=== PATIENT | female | born 1945 | race Caucasian/White ===

== ENCOUNTER 2022-09-28 04:40 | Inpatient (IN) ==
[2022-09-28] MEDS ORDERED: fentaNYL citrate PF 100 MCG/2 ML VIAL IV PRN (04:58)
[2022-09-28] MEDS ORDERED: ONDANSETRON INJ 2 MG/ML 2 ML VIAL IV STA (04:58)
[2022-09-28] MEDS ORDERED: ACETAMINOPHEN 1,000 MG/100 ML VIAL IV STA (04:58)
[2022-09-28] MEDS ORDERED: SODIUM CHLORIDE 0.9% 1000ML 1,000 ML IV SCH (05:00)
--- NOTE | 2022-09-28 05:08 | Emergency Department Note ---
Impression & Plan Abdominal pain, Nausea & vomiting, Small bowel obstruction ED Provider Note ED Provider Note NAME: ARNOLDO ZAMUDIO AGE:77 SEX: Female : 1945 ARRIVES VIA: EMS INFORMANT: Patient ED PROVIDER(s): Breanne Barros DO CHIEF COMPLAINT: Abdominal pain HPI: This is a 77-year-old female brought in by EMS due to concern for worsening abdominal pain, nausea, constipation, and chills. Patient states she felt well yesterday during the day however began to develop some lower abdominal pain in the evening. She states pain worsened overnight, is worse on the left than the right of her lower abdomen and radiates around into her back bilaterally. She states she began feeling chilled and getting nauseated and vomited several times at home. She states she did have a small bowel movement overnight tonight that she describes as a small pellet which was hard. No obvious blood. Patient denies any recent change in medications. She takes low-dose aspirin, no anticoagulation. She denies any recent dietary change or known sick contacts. Patient states she has had prior abdominal surgery when she had ischemia of her intestines. She states this feels similar. Patient is traveling from out of town. PAST MEDICAL HISTORY:See Below PAST SURGICAL HISTORY:See Below FAMILY HISTORY:See Below SOCIAL HISTORY:See Below HOME MEDICATIONS:See Below ALLERGIES:See Below VITALS:See Below PHYSICAL EXAMINATION: GENERAL: alert, unwell appearing, well nourished, mild distress, rigors, vomiting on arrival EYE EXAM: normal conjunctiva, PERRL and EOM's grossly intact OROPHARYNX: no exudate, no erythema, lips, buccal mucosa, and tongue normal and mucous membranes are dry NECK: supple, no nuchal rigidity, no adenopathy, non-tender LUNGS: Clear to auscultation. Normal chest wall mechanics, no w/r/r HEART: no murmurs, S1 normal and S2 normal ABDOMEN: abdomen soft, discomfort left greater than right of the lower abdomen, normo-active bowel sounds, no masses, no rebound or guarding. BACK: Back is symmetrical on inspection and there is no deformity, no midline tenderness, no CVA tenderness. SKIN: no rashes, petechiae, orbruising UPPER EXTREMITIES: upper extremities are grossly normal. FROM, nml pulses b/l. LOWER EXTREMITIES: No pitting edema. FROM, nml pulses b/l. NEURO EXAM: Normal sensorium, cranial nerves II-XII grossly intact, normal speech, no facial droop,nogross weakness of arms, no gross weakness of legs. Gross sensation intact. No ataxia. Vital Signs: reviewed and remarkable Differential Diagnosis: diverticulitis, perf, mesenteric ischemia, volvulus, renal colic, UTI, GI bleed, SBO, colitis as well as others were considered MEDICAL DECISION MAKING: THis is a 77 yo female who presents to the ER with concern for abdominal pain, nausea and vomiting. Patient ill appearing on arrival, however VS stable. Labs drawn and sent, IV established, EKG and CXR performed and interpreted at bedside, and patient placed on telemetry. She was started on IVF and given IV tylenol, IV zofran, IV compazine, and IV fentanyl for her symptoms. She was sent for CT imaging which showed SBO. This was discussed with gen surg PA who evaluated the patient at bedside and then with hospitalist team. Patient and friends she is traveling with were updated on results and need for additional inpatient evaluation at bedside. They verbalized understanding and were in agreement with the plan. UA still pending at time of discussion. Repeat lactic acid reassuring. Consultation(s): 0726: Discussed with Junaid Franco PA-C with general surgery. 0745: Discussed with Dr. Calderon, [facility] hospitalist team. ER Treatment Provided: See below 0720: Patient updated on results. She states no nausea at this time and as long as she is not trying to move she has no further pain. Patient now also states she did finish an antibiotic for UTI approximately 4 to 5 days ago. She states she has been having small hard stools for approximately the last week. She s tates this is not uncommon when she travels. Diagnostics Interpreted By Me: -ECG: Normal sinus at 66, first-degree AV block, left axis, normal intervals, nonspecific ST/T wave changes -Cardiac Monitoring: An order was placed for continuous cardiac monitoring. The monitor shows a rate of 68 with normal sinus rhythm. -Laboratory studies: As stated above and show below. -Imaging studies: X-ray Chest: A single view study of the chest was reviewed and was negative for cardiomegaly, focal infiltrate, effusion, pulmonary edema, or wide mediastinum. Triage Nursing Note Reviewed Prior/Outside Records Reviewed Past Med/Surg History Medical History (Updated 09/29/22 @ 22:06 by Breanne Barros DO) CAD (coronary atherosclerotic disease) Diabetes mellitus H/O: HTN (hypertension) HLD (hyperlipidemia) Ischemia, bowel UTI (urinary tract infection) Surgical History (Updated 09/28/22 @ 08:59 by Clair Medley PA-C) H/O laminectomy History of colon resection History of repair of hiatal hernia Social History Smoking Status: Never smoker Second Hand Exposure: No; Do You Dip or Chew Tobacco: No; Hx Alcohol Use: Yes Alcohol type: beer and wine Hx Substance Use: Yes Last Used Substance: Unknown Last Used Substance Other:: >1 month ago Preferred Language: Bengali Communication Ability: Effective Product Advisor Required: No Beliefs That Will Affect Care: None Current Living Situation: Family Current Living Situation Comment: lives with sister Other Information That Helps Us Care for You: No Feels Safe at Home: Yes Safety Concerns: Feels Safe At This Time Assistive Devices: Cane Allergies Allergies Allergy/AdvReac Type Severity Reaction Status Date / Time Sulfa (Sulfonamide Allergy Hives Verified 09/28/22 07:48 Antibiotics) Home Meds Home Medications Medication Instructions Recorded Confirmed Bifidobacterium infantis 4 mg 4 mg PO HS 09/28/22 09/28/22 capsule (Align) aspirin 81 mg tablet,delayed 81 mg PO HS 09/28/22 09/28/22 release atenolol 50 mg tablet 50 mg PO QAM 09/28/22 09/28/22 calcium 26-vit D3-magnesium 15 1 tab PO DAILY 09/28/22 09/28/22 coenzyme Q10 100 mg capsule (Co 100 mg PO HS 09/28/22 09/28/22 Q-10) docusate sodium 50 mg capsule 50 mg PO DAILY 09/28/22 09/28/22 duloxetine 60 mg capsule,delayed 60 mg PO QAM 09/28/22 09/28/22 release (Cymbalta) empagliflozin 25 mg tablet 25 mg PO QAM 09/28/22 09/28/22 (Jardiance) insulin glargine U-300 conc 300 39 unit subcut 09/28/22 09/28/22 unit/mL (3 mL) subcutaneous pen (Toujeo Max U-300 SoloStar) methylphenidate HCl 20 mg tablet 40 mg PO QAM 09/28/22 09/28/22 rosuvastatin 20 mg tablet 20 mg PO HS 09/28/22 09/28/22 semaglutide 2 mg/dose (8 mg/3 mL) 2 mg subcut DIRECTED 09/28/22 09/28/22 subcutaneous pen injector (Ozempic) Results & Data (ED) Vital Signs Vital Signs - 24 hr 09/28/22 04:48 09/28/22 05:30 09/28/22 06:24 Temperature 36.4 C L Temperature Source Temporal Artery Scan Pulse Rate 53 L 53 L Pulse Rate from SpO2 Sensor Respiratory Rate 20 Blood Pressure 167/70 H Blood Pressure Mean 102 Blood Pressure Position Lying Pulse Oximetry 98 Oxygen Delivery Method Room Air Sepsis Recent Fever Within 48 Hours No Sepsis New/Unexplained Change in Mental Status N/A Sepsis Action Taken by Nursing No Action Required 09/28/22 05:01 09/28/22 05:30 09/28/22 06:44 Temperature Temperature Source Pulse Rate 64 Pulse Rate from SpO2 Sensor Respiratory Rate 17 Blood Pressure 129/111 H 154/62 H Blood Pressure Mean 117 92 Blood Pressure Position Pulse Oximetry Oxygen Delivery Method Sepsis Recent Fever Within 48 Hours Sepsis New/Unexplained Change in Mental Status Sepsis Action Taken by Nursing 09/28/22 06:44 Temperature Temperature Source Pulse Rate 64 Pulse Rate from SpO2 Sensor 67 Respiratory Rate 22 Blood Pressure Blood Pressure Mean Blood Pressure Position Pulse Oximetry 93 Oxygen Delivery Method Room Air Sepsis Recent Fever Within 48 Hours Sepsis New/Unexplained Change in Mental Status Sepsis Action Taken by Nursing Laboratory Data 09/28/22 04:44 09/28/22 04:44 Lab Results 09/28/22 09/28/22 09/28/22 Range/Units 04:44 04:44 04:44 WBC 7.83 (4.8-10.8) K/ul RBC 5.26 (4.20-5.40) M/uL Hgb 16.4 H (12.0-16.0) g/dl Hct 47.6 H (37.0-47.0) % MCV 90.5 (80.0-100.0) fL MCH 31.2 (25.0-34.0) pg MCHC 34.5 (32.0-36.0) g/dL RDW Std Deviation 41.5 (36.4-46.3) fL RDW Coeff of Herbie 12.5 (11.5-14.5) % Plt Count 206 (130-400) K/uL MPV 10.1 (9.4-12.4) fL Immature Gran % (Auto) 0.5 % Neut % (Auto) 55.5 % Lymph % (Auto) 34.4 % Jessamine % (Auto) 6.8 % Eos % (Auto) 2.2 % Baso % (Auto) 0.6 % Neut # (Auto) 4.35 (1.40-6.50) K/uL Lymph # (Auto) 2.69 (1.2-3.4) K/uL Jessamine # (Auto) 0.53 (0.11-0.59) K/uL Eos # (Auto) 0.17 (0-0.50) K/uL Baso # (Auto) 0.05 (0-0.2) K/uL Immature Gran # (Auto) 0.04 (0.01-0.20) K/uL PT 10.6 (9.0-12.0) Seconds INR 1.0 (0.9-1.1) Sodium (136-145) mmol/L Potassium (3.5-5.1) mmol/L Chloride (98-107) mmol/L Carbon Dioxide (21-32) mmol/L Anion Gap (3-11) BUN (6-23) mg/dl Creatinine (0.6-1.2) mg/dl Est Cr Clr Drug Dosing Est GFR ( Amer) ml/min Est GFR (Non-Af Amer) ml/min BUN/Creatinine Ratio (10-20) Glucose (70-99(Fasting)) mg/dl Lactate (0.4-2.0) mmol/L Calcium (8.6-10.3) mg/dl Magnesium (1.7-2.4) mg/dl Total Bilirubin (0.2-1.0) mg/dl AST (13-39) U/L ALT (7-52) U/L Alkaline Phosphatase (34-104) U/L Troponin I High Sens (0-14) pg/ml Total Protein (6.0-8.3) gm/dl Albumin (3.4-5.0) gm/dl Globulin (2.5-4.0) gm/dl Albumin/Globulin Ratio (0.9-2) Lipase (11-82) U/L Procalcitonin < 0.05 (0-0.5) ng/ml 09/28/22 09/28/22 09/28/22 Range/Units 04:44 05:29 07:11 WBC (4.8-10.8) K/ul RBC (4.20-5.40) M/uL Hgb (12.0-16.0) g/dl Hct (37.0-47.0) % MCV (80.0-100.0) fL MCH (25.0-34.0) pg MCHC (32.0-36.0) g/dL RDW Std Deviation (36.4-46.3) fL RDW Coeff of Herbie (11.5-14.5) % Plt Count (130-400) K/uL MPV (9.4-12.4) fL Immature Gran % (Auto) % Neut % (Auto) % Lymph % (Auto) % Jessamine % (Auto) % Eos % (Auto) % Baso % (Auto) % Neut # (Auto) (1.40-6.50) K/uL Lymph # (Auto) (1.2-3.4) K/uL Jessamine # (Auto) (0.11-0.59) K/uL Eos # (Auto) (0-0.50) K/uL Baso # (Auto) (0-0.2) K/uL Immature Gran # (Auto) (0.01-0.20) K/uL PT (9.0-12.0) Seconds INR (0.9-1.1) Sodium 139 (136-145) mmol/L Potassium 3.4 L (3.5-5.1) mmol/L Chloride 103 (98-107) mmol/L Carbon Dioxide 25 (21-32) mmol/L Anion Gap 11 (3-11) BUN 20 (6-23) mg/dl Creatinine 1.00 (0.6-1.2) mg/dl Est Cr Clr Drug Dosing Not Reportable Est GFR ( Amer) 62.9 ml/min Est GFR (Non-Af Amer) 54.3 ml/min BUN/Creatinine Ratio 20.0 (10-20) Glucose 182 H (70-99(Fasting)) mg/dl Lactate 2.5 H* 1.4 (0.4-2.0) mmol/L Calcium 10.6 H (8.6-10.3) mg/dl Magnesium 2.1 (1.7-2.4) mg/dl Total Bilirubin 0.5 (0.2-1.0) mg/dl AST 20 (13-39) U/L ALT 18 (7-52) U/L Alkaline Phosphatase 79 (34-104) U/L Troponin I High Sens 2.7 (0-14) pg/ml Total Protein 7.3 (6.0-8.3) gm/dl Albumin 4.2 (3.4-5.0) gm/dl Globulin 3.1 (2.5-4.0) gm/dl Albumin/Globulin Ratio 1.4 (0.9-2) Lipase 24 (11-82) U/L Procalcitonin (0-0.5) ng/ml Administered Medications Dextrose (Dextrose 50% 50 Ml Syringe) 25 - 50 ml IV UD PRN; Protocol PRN Reason: Hypoglycemia Protocol Stop: 10/28/22 10:52 Last Admin: 09/29/22 18:18 Dose: 50 ml Documented By: EVELIN Enoxaparin Sodium (Enoxaparin Inj 40 Mg/0.4 Ml Syr) 40 mg SQ DAILY [facility] Stop: 10/28/22 11:14 Last Admin: 09/29/22 10:04 Dose: 40 mg Documented By: Admin: 09/28/22 12:25 Dose: 40 mg Documented By: WENDY Acetaminophen ([facility]) 1,000 mg in 100 mls @ 400 mls/hr IV Q8H PRN PRN Reason: Mild/moderate pain or fever Stop: 10/01/22 10:52 Last Infusion: 09/29/22 19:03 Dose: 0 mls/hr Documented By: TKLake Admin: 09/29/22 18:46 Dose: 400 mls/hr Documented By: Infusion: 09/29/22 00:05 Dose: 0 mls/hr Documented By: Admin: 09/28/22 23:34 Dose: 400 mls/hr Documented By: Infusion: 09/28/22 14:14 Dose: 0 mls/hr Documented By: Admin: 09/28/22 13:40 Dose: 400 mls/hr Documented By: WENDY Famotidine 20 mg/ Syringe 5 mls @ 2.5 mls/min IV QAM LEANNE Stop: 10/29/22 08:59 Last Admin: 09/29/22 08:40 Dose: 2.5 mls/min Documented By: EVELIN Ceftriaxone Sodium 1,000 mg/ (Dextrose) 50 mls @ 100 mls/hr IV Q24H LEANNE; Protocol Stop: 10/04/22 08:59 Last Infusion: 09/29/22 10:17 Dose: 0 mls/hr Documented By: Admin: 09/29/22 09:19 Dose: 100 mls/hr Documented By: EVELIN Dextrose/Sodium Chloride (D5w And Nss) 1,000 mls @ 125 mls/hr IV .Q8H LEANNE Stop: 10/29/22 18:29 Last Admin: 09/29/22 18:23 Dose: 125 mls/hr Documented By: EVELIN Insulin Aspart (Insulin Aspart Per Unit Charge) 0 units SC Q6 LEANNE Stop: 10/28/22 11:29 Last Admin: 09/29/22 18:13 Dose: Not Given Documented By: Admin: 09/29/22 12:08 Dose: Not Given Documented By: Admin: 09/29/22 07:13 Dose: Not Given Documented By: Admin: 09/29/22 03:22 Dose: Not Given Documented By: Admin: 09/28/22 18:05 Dose: Not Given Documented By: WENDY Co-signed By: MARIE Admin: 09/28/22 12:18 Dose: Not Given Documented By: WENDY Co-signed By: FADI Insulin Glargine (Lantus Per Unit Charge) 0 units SC HS [facility]; Protocol Stop: 10/28/22 20:59 Last Admin: 09/29/22 20:35 Dose: Not Given Documented By: Admin: 09/28/22 21:11 Dose: Not Given Documented By: ALLYSSA Morphine Sulfate (Morphine Sulfate 2 Mg/Ml Carp) 1 mg IV Q2H PRN PRN Reason: severe pain Stop: 10/12/22 10:52 Last Admin: 09/29/22 06:56 Dose: 1 mg Documented By: Admin: 09/28/22 14:47 Dose: 1 mg Documented By: MK Discontinued Medications Sodium Chloride (Nss 1000ml) 1,000 mls @ 125 mls/hr IV .Q8H LEANNE Stop: 10/28/22 04:59 Last Infusion: 09/28/22 11:23 Dose: 0 mls/hr Documented By: Admin: 09/28/22 05:03 Dose: 125 mls/hr Documented By: Acetaminophen (Ofirmev) 1,000 mg in 100 mls @ 400 mls/hr IV NOW STA Stop: 09/28/22 05:12 Last Infusion: 09/28/22 05:18 Dose: 0 mls/hr Documented By: Admin: 09/28/22 05:03 Dose: 400 mls/hr Documented By: Prochlorperazine (Compazine) 1 mls @ 1 mls/min IV ONE ONE Stop: 09/28/22 05:18 Last Admin: 09/28/22 05:20 Dose: 1 mls/min Documented By: Potassium Chloride/Dextrose/Sod Cl (D5nss + 20meq Kcl) 20 meq in 1,000 mls @ 125 mls/hr IV .Q8H LEANNE; Protocol Stop: 10/28/22 11:14 Last Infusion: 09/29/22 08:28 Dose: 0 mls/hr Documented By: Infusion: 09/29/22 08:27 Dose: 0 mls/hr Documented By: Admin: 09/29/22 03:46 Dose: 125 mls/hr Documented By: Infusion: 09/29/22 03:29 Dose: 125 mls/hr Documented By: Admin: 09/28/22 19:29 Dose: 125 mls/hr Documented By: Infusion: 09/28/22 19:29 Dose: 125 mls/hr Documented By: Admin: 09/28/22 11:32 Dose: 125 mls/hr Documented By: AV Famotidine 20 mg/ Syringe 5 mls @ 2.5 mls/min IV NOW ONE Stop: 09/28/22 11:16 Last Admin: 09/28/22 11:32 Dose: 2.5 mls/min Documented By: AV Sodium Chloride (Nss 1000ml) 1,000 mls @ 125 mls/hr IV .Q8H LEANNE Stop: 10/29/22 08:29 Last Infusion: 09/29/22 18:21 Dose: 0 mls/hr Documented By: Admin: 09/29/22 16:46 Dose: 125 mls/hr Documented By: Infusion: 09/29/22 16:34 Dose: 125 mls/hr Documented By: Admin: 09/29/22 08:34 Dose: 125 mls/hr Documented By: CS Pantoprazole Sodium 40 mg/ (Syringe) 10 mls @ 5 mls/min IV 1700 ONE Stop: 09/29/22 17:01 Last Admin: 09/29/22 17:59 Dose: 5 mls/min Documented By: EVELIN Ioversol (Optiray 320 100ml) 93 ml IV ONCE ONE Stop: 09/28/22 05:57 Last Admin: 09/28/22 05:56 Dose: 93 ml Documented By: RASHAUN Ondansetron HCl (Ondansetron Inj 2 Mg/Ml 2 Ml Vial) 4 mg IV NOW STA Stop: 09/28/22 04:59 Last Admin: 09/28/22 05:03 Dose: 4 mg Documented By: Imaging Data Radiologist's Impression: Abdomen/Pelvis CT 09/28/22 04:58 CT SCAN OF THE ABDOMEN AND PELVIS WITH IV CONTRAST CLINICAL HISTORY: Generalized abdominal pain. COMPARISON STUDY: No priors. TECHNIQUE: Following the IV administration of 93 cc of Optiray 320, CT scan of the abdomen and pelvis is performed from the lung bases to the proximal femora. Images are reviewed in the axial, sagittal, and coronal planes. IV contrast was administered without complication. A dose lowering technique was utilized adheri ng to the principles of ALARA. The Examination is significantly degraded by streak artifact from extensive metallic spinal hardware and bilateral hip arthroplasties. CT DOSE: 1167.34 mGy.cm FINDINGS: Lung bases: The heart is normal in size and without pericardial effusion. The coronary arteries are densely calcified. The lung bases are clear noting mild bibasilar scarring/atelectasis. Liver: The contrast-enhanced liver is normal in size, contour, and attenuation. There is no intrahepatic biliary ductal dilatation. The hepatic veins and portal veins are patent. Gallbladder: Unremarkable. Spleen: Normal in size and attenuation. Pancreas: A 17 mm ovoid cystic lesion in the pancreatic neck seen on image #91 is typical for sidebranch IPMN. The pancreas is otherwise normal as imaged. Adrenal glands: Unremarkable. Kidneys: The contrast enhanced kidneys demonstrate mild cortical atrophy and are without hydronephrosis. The kidneys enhance symmetrically. Abdominal vasculature: The abdominal aorta is normal in course and caliber note a moderate to advanced atherosclerotic calcification. Stomach and bowel: There is a [id number] hiatal hernia. There is evidence of previous fundoplication. There is advanced colonic diverticulosis without CT evidence of acute diverticulitis. Postsurgical change is seen involving the right colon with ileocolic anastomosis. The mid small bowel loops are distended and fluid-filled measuring up to 2.5 cm in diameter. A complex transition point is seen in the right lower quadrant on image #187. There is infiltration and interloop fluid around the small bowel loops in the right lower quadrant. The small bowel distal to this is completely decompressed and the appearance is consistent with a small bowel obstruction. There is no pneumatosis intestinalis or portal venous gas. The appendix is surgically absent. Peritoneum: No intraperitoneal free air is identified. There is trace interloop fluid as well as trace free fluid in the right paracolic gutter. Lymphadenopathy: None. Pelvic viscera: Evaluation of the pelvis is degraded by streak artifact from bilateral hip arthroplasties. The bladder is normal as visualized. The uterus is surgically absent. No adnexal lesion is seen. There are small bilateral fat- containing groin hernias. Skeletal structures: The skeletal structures are osteopenic. There is lumbosacral spondylosis with postsurgical change from laminectomy and posterior fusion seen extending from L1-S1. Interpedicular screws are present at all levels. Lucency around the interpedicular screws at S1 suggests loosening. No lytic or blastic lesions are seen. Bilateral hip arthroplasties are in place. Soft tissues: A fluid collection seen in the posterior midline subcutaneous soft tissues overlying the laminectomy site measures approximately 9 x 3.5 x 3 cm. IMPRESSION: 1. There is postsurgical change from right colonic resection with ileocolic an astomosis. 2. There is a small bowel obstruction with a complex transition point in the right lower quadrant. Interloop fluid and infiltration is seen around the small bowel loops in the right lower quadrant at the transition point. This is likely on the basis of adhesions. Given the somewhat complex appearance a closed loop type obstruction is not entirely excluded. Surgical assessment is advised. 3. No focally thick-walled bowel loops are identified. There is no pneumatosis intestinalis or portal venous gas, and no intraperitoneal free air is seen. 4. A 17 mm ovoid cystic lesion in the pancreatic neck is typical for a sidebranch IPMN. Nonemergent GI follow-up is recommended. 5. Extensive postlaminectomy change is seen throughout the lumbar spine as above. A large subcutaneous fluid collection in the posterior midline at the laminectomy levels likely represents a seroma. The sterility of this fluid cannot be assessed imaging. 6. Lucency around the interpedicular screws at S1 suggests loosening. 7. Advanced colonic diverticulosis without CT evidence of acute diverticulitis. 8. Advanced coronary artery atherosclerosis. 9. Additional findings as above. ACT 112: Negative or not required by law. Electronically signed by: Ramesh Corrales M.D. 09/28/2022 7:11 AM Discharge Plan Visit Data Chief Complaint: Abdominal Pain Stated Complaint: Abdominal Pain, Constipation, Vomiting ED Provider: Breanne Barros Discharge Problem: Abdominal pain, Nausea & vomiting, Small bowel obstruction Patient Disposition: Admitted As Inpatient Discharge Instructions Interventions: ED Discharge Assessment Last Done: 09/28/22 10:00
[2022-09-28 05:10] LABS: Basophils # (auto) 0.05 K/uL (0-0.2); Basophils % (auto) 0.6 %; Eosinophils # (auto) 0.17 K/uL (0-0.50); Eosinophils % (auto) 2.2 %; Hematocrit (blood only) 47.6 % (37.0-47.0); Hemoglobin 16.4 g/dl (12.0-16.0); Immature Granulocytes # (auto) 0.04 K/uL (0.01-0.20); Immature Granulocytes % (auto) 0.5 %; Lymphocytes # (auto) 2.69 K/uL (1.2-3.4); Lymphocytes % (auto) 34.4 %; Mean Corpuscular Hemoglobin 31.2 pg (25.0-34.0); Mean Corpuscular Hgb Conc 34.5 g/dL (32.0-36.0); Mean Corpuscular Volume 90.5 fL (80.0-100.0); Mean Platelet Volume 10.1 fL (9.4-12.4); Monocytes # (auto) 0.53 K/uL (0.11-0.59); Monocytes % (auto) 6.8 %; Neutrophils # (auto) 4.35 K/uL (1.40-6.50); Neutrophils % (auto) 55.5 %; Platelet Count 206 K/uL (130-400); RDW Coefficient of Variation 12.5 % (11.5-14.5); RDW Standard Deviation 41.5 fL (36.4-46.3); Red Blood Count 5.26 M/uL (4.20-5.40); White Blood Count 7.83 K/ul (4.8-10.8)
[2022-09-28] MEDS ORDERED: PROCHLORPERAZINE 1 ML IV ONE (05:17)
[2022-09-28 05:19] LABS: Alanine Aminotransferase 18 U/L (7-52); Albumin Globulin Ratio 1.4 (0.9-2); Albumin Level 4.2 gm/dl (3.4-5.0); Alkaline Phosphatase 79 U/L (34-104); Anion Gap 11 (3-11); Aspartate Aminotransferase 20 U/L (13-39); Bilirubin,Total 0.5 mg/dl (0.2-1.0); Blood Urea Nitrogen 20 mg/dl (6-23); Calcium 10.6 mg/dl (8.6-10.3); Carbon Dioxide 25 mmol/L (21-32); Chloride 103 mmol/L (98-107); Est GFR (African American) 62.9 ml/min; Est GFR (Non-African American) 54.3 ml/min; Globulin 3.1 gm/dl (2.5-4.0); Glucose 182 mg/dl (70-99(Fasting)); Lipase 24 U/L (11-82); Magnesium 2.1 mg/dl (1.7-2.4); Potassium 3.4 mmol/L (3.5-5.1); Sodium 139 mmol/L (136-145); Total Protein 7.3 gm/dl (6.0-8.3)
[2022-09-28 05:26] LABS: Troponin I High Sensitivity 2.7 pg/ml (0-14)
[2022-09-28 05:37] LABS: Prothrombin Time 10.6 Seconds (9.0-12.0)
[2022-09-28] MEDS ORDERED: OPTIRAY 320 100ml IV ONE (05:56)
--- NOTE | 2022-09-28 07:13 | CT Scan Report ---
CT SCAN OF THE ABDOMEN AND PELVIS WITH IV CONTRAST CLINICAL HISTORY: Generalized abdominal pain. COMPARISON STUDY: No priors. TECHNIQUE: Following the IV administration of 93 cc of Optiray 320, CT scan of the abdomen and pelvi s is performed from the lung bases to the proximal femora. Images are reviewed in the axial, sagittal , and coronal planes. IV contrast was administered without complication. A dose lowering technique wa s utilized adhering to the principles of ALARA. The Examination is significantly degraded by streak a rtifact from extensive metallic spinal hardware and bilateral hip arthroplasties. CT DOSE: 1167.34 mGy.cm FINDINGS: Lung bases: The heart is normal in size and without pericardial effusion. The coronary arteries are d ensely calcified. The lung bases are clear noting mild bibasilar scarring/atelectasis. Liver: The contrast-enhanced liver is normal in size, contour, and attenuation. There is no intrahepa tic biliary ductal dilatation. The hepatic veins and portal veins are patent. Gallbladder: Unremarkable. Spleen: Normal in size and attenuation. Pancreas: A 17 mm ovoid cystic lesion in the pancreatic neck seen on image #91 is typical for sidebra nch IPMN. The pancreas is otherwise normal as imaged. Adrenal glands: Unremarkable. Kidneys: The contrast enhanced kidneys demonstrate mild cortical atrophy and are without hydronephros is. The kidneys enhance symmetrically. Abdominal vasculature: The abdominal aorta is normal in course and caliber note a moderate to advance d atherosclerotic calcification. Stomach and bowel: There is a [id number] hiatal hernia. There is evidence of previous fundopli cation. There is advanced colonic diverticulosis without CT evidence of acute diverticulitis. Postsur gical change is seen involving the right colon with ileocolic anastomosis. The mid small bowel loops are distended and fluid-filled measuring up to 2.5 cm in diameter. A complex transition point is seen in the right lower quadrant on image #187. There is infiltration and interloop fluid around the smal l bowel loops in the right lower quadrant. The small bowel distal to this is completely decompressed and the appearance is consistent with a small bowel obstruction. There is no pneumatosis intestinalis or portal venous gas. The appendix is surgically absent. Peritoneum: No intraperitoneal free air is identified. There is trace interloop fluid as well as trac e free fluid in the right paracolic gutter. Lymphadenopathy: None. Pelvic viscera: Evaluation of the pelvis is degraded by streak artifact from bilateral hip arthroplas ties. The bladder is normal as visualized. The uterus is surgically absent. No adnexal lesion is seen . There are small bilateral fat-containing groin hernias. Skeletal structures: The skeletal structures are osteopenic. There is lumbosacral spondylosis with po stsurgical change from laminectomy and posterior fusion seen extending from L1-S1. Interpedicular scr ews are present at all levels. Lucency around the interpedicular screws at S1 suggests loosening. No lytic or blastic lesions are seen. Bilateral hip arthroplasties are in place. Soft tissues: A fluid collection seen in the posterior midline subcutaneous soft tissues overlying th e laminectomy site measures approximately 9 x 3.5 x 3 cm. IMPRESSION: 1. There is postsurgical change from right colonic resection with ileocolic anastomosis. 2. There is a small bowel obstruction with a complex transition point in the right lower quadrant. In terloop fluid and infiltration is seen around the small bowel loops in the right lower quadrant at th e transition point. This is likely on the basis of adhesions. Given the somewhat complex appearance a closed loop type obstruction is not entirely excluded. Surgical assessment is advised. 3. No focally thick-walled bowel loops are identified. There is no pneumatosis intestinalis or portal venous gas, and no intraperitoneal free air is seen. 4. A 17 mm ovoid cystic lesion in the pancreatic neck is typical for a sidebranch IPMN. Nonemergent G I follow-up is recommended. 5. Extensive postlaminectomy change is seen throughout the lumbar spine as above. A large subcutaneou s fluid collection in the posterior midline at the laminectomy levels likely represents a seroma. The sterility of this fluid cannot be assessed imaging. 6. Lucency around the interpedicular screws at S1 suggests loosening. 7. Advanced colonic diverticulosis without CT evidence of acute diverticulitis. 8. Advanced coronary artery atherosclerosis. 9. Additional findings as above. ACT 112: Negative or not required by law. Electronically signed by: Ramesh Corrales M.D. 09/28/2022 7:11 AM
[2022-09-28] MEDS ORDERED: PROCHLORPERAZINE 1 ML IV PRN (07:23)
--- NOTE | 2022-09-28 07:48 | Surgery Consultation ---
Date of Consultation September 28, 2022 Assessment & Plan (1) Small bowel obstruction: I discussed with the treating emergency room physician and the patient is being admitted on the hospitalist service. We recommend proceeding as follows: Provide analgesics provide antiemetics At the present time the patient is not having any emesis and her abdomen is soft and nonrigid. Due to the findings on her abdominal exam I feel we can hold on placing NG tube at this time. I did discuss with the patient that if her clinical exam worsens or if she has any recurrent emesis and NG tube may need to be placed and she expressed her understanding. The patient should be kept n.p.o. IV fluids should be in place for hydration measures Follow serial labsthe patient did have an elevated lactic acid level. She did receive intravenous fluids in the emergency department and a repeat lactic acid level was noted to be nonelevated. Additional recommendations were forthcoming based on pending labs and her clinical course as it unfolds Supervising Physician Co-Signing Physician Notes Patient seen and examined, labs and imaging reviewed, agree with above. 77-year-old female with history of right hemicolectomy for ischemic bowel at [facility] presents with abdominal pain. She feels much better than on arrival. On exam she is afebrile with stable vitals, abdomen soft, nontender, minimally distended. CT personally reviewed and interpreted and agree with the assessment of a small bowel obstruction with some interloop edema. No pneumatosis. I do not feel this represents a closed-loop obstruction. Likely adhesions from prior hemicolectomy, will hold off on NG tube, will keep her n.p.o. No surgical intervention indicated at this time. Surgery will continue to follow History of Present Illness Reason for Consultation: Small bowel obstruction History of Present Illness This is a 77-year-old female who presented to [facility] emergency department secondary to abdominal pain. This patient resides in [place] where she receives her medical care. She is in [place] visiting friends. She was fine in her usual state of health until yesterday after her evening meal when she had the urge to have a bowel movement but notes that she could not. She then developed some generalized abdominal pain with some associated nausea and vomiting. She has not had any fevers, shakes, or chills. The patient does report that she has had a history of a partial colon resection secondary to bowel ischemia in 2018 and she noted that her pain was similar to what she noted at that time. Since her pain began the patient says that she has only been able to have a very small bowel movement. Since arrival to the emergency department she has not moved her bowels and has not been passing any flatus. She did have 1 episode of emesis shortly after arrival to the emergency department but has not had any since that time. Since arrival to the emergency department the patient has had labs and imaging which independent reviewed. Chest x-ray did not show any evidence of pneumonia. Patient did have a CT scan of the abdomen and pelvis that showed patient had postsurgical changes from a previous right colon resection. The patient was also noted to have a small bowel obstruction with a transition point in the right lower quadrant. Interpreting radiologist felt that this was likely in the basis of adhesions but a closed-loop obstruction could not be excluded. There is no pneumatosis intestinalis or portal venous gas. There is no intraperitoneal free air. Labs include a CBC her white blood cell count was normal. Her hemoglobin and hematocrit were 16.4 and 47.6. Platelet count was normal. Coagulation studies were normal. Her sodium was 139 with a potassium of 3.4. BUN and creatinine were both within the normal range. Patient did have a lactic acid level of 2.5 upon arrival. Cardiac enzymes were checked and were nonelevated. A procalcitonin level was nonelevated. An EKG showed normal sinus rhythm. There did not appear to be any changes indicative of acute ischemia. At the time of my interview the patient was resting comfortably in bed and she was no distress. Patient did bring her a list of previous surgeries and medical conditions. Her past surgical history includes the following: Hysterectomy, numerous orthopedic surgeries(right foot reconstruction, left shoulder arthroscopy, lumbar spine surgery, right thumb surgery, left thumb surgery, left knee replacement, right knee arthroscopy, right knee replacement,, left hip replacement, right hip replacement, right shoulder replacement, left shoulder replacement,) Port-A-Cath insertion, emergency partial colon resection with appendectomy secondary to bowel ischemia, hiatal hernia repair, and eyelid surgery Past medical history includes coronary artery (the patient reports that she did undergo cardiac catheterization in November 2013 where she had 2 stents placedshe says she only takes an aspirin for this), diabetes, hypertension, hypercholesterolemia Allergies Allergy/AdvReac Type Severity Reaction Status Date / Time Sulfa (Sulfonamide Allergy Hives Verified 09/28/22 07:48 Antibiotics) Home Medications Medication Instructions Recorded Confirmed Type Bifidobacterium infantis 4 mg 4 mg PO HS 09/28/22 09/28/22 History capsule (Align) aspirin 81 mg tablet,delayed 81 mg PO HS 09/28/22 09/28/22 History release atenolol 50 mg tablet 50 mg PO QAM 09/28/22 09/28/22 History calcium 26-vit D3-magnesium 15 1 tab PO DAILY 09/28/22 09/28/22 History coenzyme Q10 100 mg capsule (Co 100 mg PO HS 09/28/22 09/28/22 History Q-10) docusate sodium 50 mg capsule 50 mg PO DAILY 09/28/22 09/28/22 History duloxetine 60 mg capsule,delayed 60 mg PO QAM 09/28/22 09/28/22 History release (Cymbalta) empagliflozin 25 mg tablet 25 mg PO QAM 09/28/22 09/28/22 History (Jardiance) insulin glargine U-300 conc 300 39 unit subcut HS 09/28/22 09/28/22 History unit/mL (3 mL) subcutaneous pen (Toujeo Max U-300 SoloStar) methylphenidate HCl 20 mg tablet 40 mg PO QAM 09/28/22 09/28/22 History rosuvastatin 20 mg tablet 20 mg PO HS 09/28/22 09/28/22 History semaglutide 2 mg/dose (8 mg/3 mL) 2 mg subcut DIRECTED 09/28/22 09/28/22 History subcutaneous pen injector (Ozempic) Patient History Medical History (Updated 09/28/22 @ 08:59 by Clair Medley PA-C) CAD (coronary atherosclerotic disease) Diabetes mellitus H/O: HTN (hypertension) HLD (hyperlipidemia) Ischemia, bowel UTI (urinary tract infection) Surgical History (Updated 09/28/22 @ 08:59 by Clair Medley PA-C) H/O laminectomy History of colon resection History of repair of hiatal hernia Social History Smoking Status: Never smoker Preferred Language: Qatari Feels Safe at Home: Yes Review of Systems Constitutional: no fever and no chills Ear, Nose, Mouth, Throat: no hearing loss Respiratory: no dyspnea Cardiovascular: no chest pain Gastrointestinal: as per Subjective / HPI Genitourinary: no dysuria Musculoskeletal: no back pain Integumentary: no rash Neurologic: no localized weakness Physical Exam Constitutional: WD/WN, vitals as above Eyes: no conjunctival abnormality ENMT: Ears: no hearing impairment Neck: trachea midline Respiratory: normal respiratory effort; no respiratory distress and no labored breathing Cardiovascular: Rate/Rhythm: regular rate and regular rhythm Gastrointestinal (Abdomen): At the time of my exam patient had hypoactive bowel sounds. Her abdomen is soft and nondistended. It is nonrigid there is no rebound tenderness or guarding but patient did have some generalized pain which appear to be greatest just to the right of the umbilicus. Musculoskeletal: No calf tenderness Skin: no rashes Neurologic: moves all extremities Results & Data Vital Signs (Past 12 Hours) Vital Signs Temp Pulse Resp BP Pulse Ox O2 Del Method 09/28/22 06:44 64 22 93 Room Air 09/28/22 06:44 154/62 H 09/28/22 05:30 64 17 09/28/22 05:01 129/111 H 09/28/22 06:24 36.4 C L 09/28/22 05:30 53 L 20 167/70 H 98 Room Air 09/28/22 04:48 53 L PG Care Time/CCT Total # of Minutes Spent Total Time Spent with Patient: Total time spent is greater than 50% in coordination of care (as documented) at patient's floor/unit and/or counseling patient: Coding Level of Care Code 21254 INT INP/OBS CARE 3/75MIN Diagnoses Small bowel obstruction K56.609
--- NOTE | 2022-09-28 07:52 | XRay Report ---
SINGLE VIEW CHEST CLINICAL HISTORY: Nausea and vomiting. Generalized abdominal pain. FINDINGS: An AP, portable, upright chest radiograph is obtained. No prior studies are available for c omparison at the time of dictation. The cardiomediastinal silhouette is top normal for projection not ing atherosclerotic calcification of the thoracic aorta. The lungs and pleural spaces are clear. No p neumothorax is seen. The skeletal structures are osteopenic. The bony thorax is grossly intact. Bilat eral shoulder arthroplasties are in place. Fusion hardware is seen in the lumbar spine. IMPRESSION: No active disease in the chest. ACT 112: Negative or not required by law. Electronically signed by: Ramesh Corrales M.D. 09/28/2022 7:50 AM
--- NOTE | 2022-09-28 08:23 | History & Physical Report ---
Date of Service September 28, 2022 Assessment & Plan (1) Small bowel obstruction: Plan: admitted w/ n/v/abdominal pain since last evening, inability to move her bowels Lactic acid elevated, normalized on repeat. No fevers but did report possible chills. WBC wnl. Hgb elevated 16.4. K 3.4, Ca 10.6. BUN/Cr 20/1.0. LFTs wnl. Trop 2.7 (no CP/SOB reported) CTAP w/ small bowel obstruction with a complex transition point in the right lower quadrant. Interloop fluid and infiltration is seen around the small bowel loops in the right lower quadrant at the transition point. This is likely on the basis of adhesions. Given the somewhat complex appearance a closed loop type obstruction is not entirely excluded. Surgical assessment is advised. Maintain NPO General surgery consulted -- appreciate assistance No NGT for now IVF support, IVF + 20KCL, added D5 given NPO Pain control -- tylenol/morphine available prn Antiemetics -- zofran prn, can add phenergan if needed (compazine making very sleepy w/ fentanyl in ER) DVT Proph: SCDs, Lovenox SQ while inpatient given hx jugular VT Check UA/cx given recent UTI/abx use Blood cultures pending from ER, defer abx at this time Monitor labs/KUB in AM (2) CAD (coronary atherosclerotic disease): Plan: hx cath s/p stent x 2 in 2013. No SOB/CP reported Holding her aspirin/atenolol at present (3) H/O: HTN (hypertension): Plan: holding home meds, monitor -- BP currently stable can add hydralazine IV if needed (4) HLD (hyperlipidemia): Plan: holding home meds while npo (5) Nausea & vomiting: Plan: antiemetics as above, no NGT at present but if recurrent n/v may need to consider (6) Abdominal pain: Plan: suspected 2nd to #1, UA/cx ordered given recent UTI/abx per patient Also w/ back surgery last year, does have seroma on imaging but not reporting significant back pain but will need to continue to monitor. PT/OT consults pending as well as blood cultures (7) UTI (urinary tract infection): Plan: of note, patient reporting recent tx for UTI, unknown abx, completed about 4 days ago. denied urinary symptoms however some lower left abd pain/flank discomfort and could be related Of note, need GI f/u for possible IMPN branch on CTAP on admission Plan DVT proph: Lovenox SQ while inpatient History of Present Illness Chief Complaint: n/v/abdominal pain, SBO Primary Care Provider: Alice Araujo 77yo female resident from [place] visiting friends in [place] with PMHx significant for CAD (s/p stent x 2 2013), HTN, HLD, DM with prior surgical history including hysterectomy and partial colon resection with appendectomy secondary to bowel ischemia, hiatal hernia repair presented with abdominal pain starting yesterday evening after evening meal with urge to have B< but was unable. Associated n/v. Hx partial colon resection 2nd to bowel ischemia in 2018, reports feeling similar. 1 episode of emesis shortly after arrival to ER but not since that time. No SBO since her resection in 2018 and subsequent hiatal hernia repair in 2019. No longer on PPI therapy as she reports symptoms had improved since surgery. Currently pain controlled but reports feeling drugged and quiet sleepy. NO chest pain or shortness of breath. No further emesis since given something stronger in the ER but reports she had vomited on in the EMS as well. Abdominal pain to her LEFT lower side with radiation around to her back. Denies urinary symptoms at present but does report she feels like she has to get up to pee. Reports she completed a course of antibiotics for a recent UTI which she is "plagued with". Spinal surgery last year. Could be from this. Hx DM, medications reviewed. She states she has been on these medications for a while, including the Ozempic and reports that she doesn't want to loose any more weight and wants off of this. Discussed last A1c, she believes hers was 6.5. Discussed conservative treatment, holding off NGT for now. Does have prior hx blood clot to jugular from shahid catheter. Will be placed on Lovenox SQ for DVT prophylaxis while inpatient. Full code in event of need for CPR/intubation if meaning short term. Allergies Allergy/AdvReac Type Severity Reaction Status Date / Time Sulfa (Sulfonamide Allergy Hives Verified 09/28/22 07:48 Antibiotics) Home Medications Medication Instructions Recorded Confirmed Type Bifidobacterium infantis 4 mg 4 mg PO HS 09/28/22 09/28/22 History capsule (Align) aspirin 81 mg tablet,delayed 81 mg PO HS 09/28/22 09/28/22 History release atenolol 50 mg tablet 50 mg PO QAM 09/28/22 09/28/22 History calcium 26-vit D3-magnesium 15 1 tab PO DAILY 09/28/22 09/28/22 History coenzyme Q10 100 mg capsule (Co 100 mg PO HS 09/28/22 09/28/22 History Q-10) docusate sodium 50 mg capsule 50 mg PO DAILY 09/28/22 09/28/22 History duloxetine 60 mg capsule,delayed 60 mg PO QAM 09/28/22 09/28/22 History release (Cymbalta) empagliflozin 25 mg tablet 25 mg PO QAM 09/28/22 09/28/22 History (Jardiance) insulin glargine U-300 conc 300 39 unit subcut HS 09/28/22 09/28/22 History unit/mL (3 mL) subcutaneous pen ([employer] Swedeno Max U-300 SoloStar) methylphenidate HCl 20 mg tablet 40 mg PO QAM 09/28/22 09/28/22 History rosuvastatin 20 mg tablet 20 mg PO HS 09/28/22 09/28/22 History semaglutide 2 mg/dose (8 mg/3 mL) 2 mg subcut DIRECTED 09/28/22 09/28/22 H istory subcutaneous pen injector (Ozempic) Past Med/Surg History Medical History (Updated 09/28/22 @ 08:59 by Clair Medley PA-C) CAD (coronary atherosclerotic disease) Diabetes mellitus H/O: HTN (hypertension) HLD (hyperlipidemia) Ischemia, bowel UTI (urinary tract infection) Surgical History (Updated 09/28/22 @ 08:59 by Clair Medley PA-C) H/O laminectomy History of colon resection History of repair of hiatal hernia Social History Smoking Status: Never smoker Second Hand Exposure: No; Do You Dip or Chew Tobacco: No; Hx Alcohol Use: Yes Alcohol type: beer and wine Hx Substance Use: Yes Last Used Substance: Unknown Last Used Substance Other:: >1 month ago Preferred Language: [place] Communication Ability: Effective Manager Agricultural Required: No Beliefs That Will Affect Care: None Current Living Situation: Family Current Living Situation Comment: lives with sister Other Information That Helps Us Care for You: No Feels Safe at Home: Yes Safety Concerns: Feels Safe At This Time Assistive Devices: Cane Review of Systems Review of Systems: All systems reviewed & are unremarkable except as noted in HPI & below Physical Exam Physical Exam: General: WD female resting in bed in ER, just medicated for pain, sleepy but NAD HEENT: head normocephalic, atraumatic, slightly dry mm, trachea midline CV: RRR, no significant m/r/g, no significant edema/calf tenderness, pulses palpable Resp: CTA, diminished in bases, no w/c/r, on room air GI: hypoactive BS throughout, soft, generalized tenderness worse in RLQ without guarding/rigidity : no tsai MSK/Neuro: no focal deficits, follows commands, no slurred speech/facial droop Psych: Alert to person/place/time, cooperative with exam Skin: perfused, no obvious rashes appreciated Results & Data Results & Data Vital Signs (Past 12 Hours) Vital Signs Temp Pulse Resp BP Pulse Ox O2 Del Method 09/28/22 06:44 64 22 93 Room Air 09/28/22 06:44 154/62 H 09/28/22 05:30 64 17 09/28/22 05:01 129/111 H 09/28/22 06:24 36.4 C L 09/28/22 05:30 53 L 20 167/70 H 98 Room Air 09/28/22 04:48 53 L Laboratory Results 09/28/22 09/28/22 09/28/22 Range/Units 07:11 05:29 04:44 WBC (4.8-10.8) K/ul RBC (4.20-5.40) M/uL Hgb (12.0-16.0) g/dl Hct (37.0-47.0) % MCV (80.0-100.0) fL MCH (25.0-34.0) pg MCHC (32.0-36.0) g/dL RDW Std Deviation (36.4-46.3) fL RDW Coeff of Herbie (11.5-14.5) % Plt Count (130-400) K/uL MPV (9.4-12.4) fL Immature Gran % (Auto) % Neut % (Auto) % Lymph % (Auto) % [place] % (Auto) % Eos % (Auto) % Baso % (Auto) % Neut # (Auto) (1.40-6.50) K/uL Lymph # (Auto) (1.2-3.4) K/uL [place] # (Auto) (0.11-0.59) K/uL Eos # (Auto) (0-0.50) K/uL Baso # (Auto) (0-0.2) K/uL Immature Gran # (Auto) (0.01-0.20) K/uL PT (9.0-12.0) Seconds INR (0.9-1.1) Sodium 139 (136-145) mmol/L Potassium 3.4 L (3.5-5.1) mmol/L Chloride 103 (98-107) mmol/L Carbon Dioxide 25 (21-32) mmol/L Anion Gap 11 (3-11) BUN 20 (6-23) mg/dl Creatinine 1.00 (0.6-1.2) mg/dl Est Cr Clr Drug Dosing Not Reportable Est GFR ( Amer) 62.9 ml/min Est GFR (Non-Af Amer) 54.3 ml/min BUN/Creatinine Ratio 20.0 (10-20) Glucose 182 H (70-99(Fasting)) mg/dl Lactate 1.4 2.5 H* (0.4-2.0) mmol/L Calcium 10.6 H (8.6-10.3) mg/dl Magnesium 2.1 (1.7-2.4) mg/dl Total Bilirubin 0.5 (0.2-1.0) mg/dl AST 20 (13-39) U/L ALT 18 (7-52) U/L Alkaline Phosphatase 79 (34-104) U/L Troponin I High Sens 2.7 (0-14) pg/ml Total Protein 7.3 (6.0-8.3) gm/dl Albumin 4.2 (3.4-5.0) gm/dl Globulin 3.1 (2.5-4.0) gm/dl Albumin/Globulin Ratio 1.4 (0.9-2) Lipase 24 (11-82) U/L Procalcitonin (0-0.5) ng/ml 09/28/22 09/28/22 09/28/22 Range/Units 04:44 04:44 04:44 WBC 7.83 (4.8-10.8) K/ul RBC 5.26 (4.20-5.40) M/uL Hgb 16.4 H (12.0-16.0) g/dl Hct 47.6 H (37.0-47.0) % MCV 90.5 (80.0-100.0) fL MCH 31.2 (25.0-34.0) pg MCHC 34.5 (32.0-36.0) g/dL RDW Std Deviation 41.5 (36.4-46.3) fL RDW Coeff of Herbie 12.5 (11.5-14.5) % Plt Count 206 (130-400) K/uL MPV 10.1 (9.4-12.4) fL Immature Gran % (Auto) 0.5 % Neut % (Auto) 55.5 % Lymph % (Auto) 34.4 % [place] % (Auto) 6.8 % Eos % (Auto) 2.2 % Baso % (Auto) 0.6 % Neut # (Auto) 4.35 (1.40-6.50) K/uL Lymph # (Auto) 2.69 (1.2-3.4) K/uL [place] # (Auto) 0.53 (0.11-0.59) K/uL Eos # (Auto) 0.17 (0-0.50) K/uL Baso # (Auto) 0.05 (0-0.2) K/uL Immature Gran # (Auto) 0.04 (0.01-0.20) K/uL PT 10.6 (9.0-12.0) Seconds INR 1.0 (0.9-1.1) Sodium (136-145) mmol/L Potassium (3.5-5.1) mmol/L Chloride (98-107) mmol/L Carbon Dioxide (21-32) mmol/L Anion Gap (3-11) BUN (6-23) mg/dl Creatinine (0.6-1.2) mg/dl Est Cr Clr Drug Dosing Est GFR ( Amer) ml/min Est GFR (Non-Af Amer) ml/min BUN/Creatinine Ratio (10-20) Glucose (70-99(Fasting)) mg/dl Lactate (0.4-2.0) mmol/L Calcium (8.6-10.3) mg/dl Magnesium (1.7-2.4) mg/dl Total Bilirubin (0.2-1.0) mg/dl AST (13-39) U/L ALT (7-52) U/L Alkaline Phosphatase (34-104) U/L Troponin I High Sens (0-14) pg/ml Total Protein (6.0-8.3) gm/dl Albumin (3.4-5.0) gm/dl Globulin (2.5-4.0) gm/dl Albumin/Globulin Ratio (0.9-2) Lipase (11-82) U/L Procalcitonin < 0.05 (0-0.5) ng/ml Diagnostic Findings Abdomen/Pelvis CT 09/28/22 04:58 CT SCAN OF THE ABDOMEN AND PELVIS WITH IV CONTRAST CLINICAL HISTORY: Generalized abdominal pain. COMPARISON STUDY: No priors. TECHNIQUE: Following the IV administration of 93 cc of Optiray 320, CT scan of the abdomen and pelvis is performed from the lung bases to the proximal femora. Images are reviewed in the axial, sagittal, and coronal planes. IV contrast was administered without complication. A dose lowering technique was utilized adhering to the principles of ALARA. The Examination is significantly degraded by streak artifact from extensive metallic spinal hardware and bilateral hip arthroplasties. CT DOSE: 1167.34 mGy.cm FINDINGS: Lung bases: The heart is normal in size and without pericardial effusion. The coronary arteries are densely calcified. The lung bases are clear noting mild bibasilar scarring/atelectasis. Liver: The contrast-enhanced liver is normal in size, contour, and attenuation. There is no intrahepatic biliary ductal dilatation. The hepatic veins and portal veins are patent. Gallbladder: Unremarkable. Spleen: Normal in size and attenuation. Pancreas: A 17 mm ovoid cystic lesion in the pancreatic neck seen on image #91 is typical for sidebranch IPMN. The pancreas is otherwise normal as imaged. Adrenal glands: Unremarkable. Kidneys: The contrast enhanced kidneys demonstrate mild cortical atrophy and are without hydronephrosis. The kidneys enhance symmetrically. Abdominal vasculature: The abdominal aorta is normal in course and caliber note a moderate to advanced atherosclerotic calcification. Stomach and bowel: There is a [id number] hiatal hernia. There is evidence of previous fundoplication. There is advanced colonic diverticulosis without CT evidence of acute diverticulitis. Postsurgical change is seen involving the right colon with ileocolic anastomosis. The mid small bowel loops are distended and fluid-filled measuring up to 2.5 cm in diameter. A complex transition point is seen in the right lower quadrant on image #187. There is infiltration and interloop fluid around the small bowel loops in the right lower quadrant. The small bowel distal to this is completely decompressed and the appearance is consistent with a small bowel obstruction. There is no pneumatosis intestinalis or portal venous gas. The appendix is surgically absent. Peritoneum: No intraperitoneal free air is identified. There is trace interloop fluid as well as trace free fluid in the right paracolic gutter. Lymphadenopathy: None. Pelvic viscera: Evaluation of the pelvis is degraded by streak artifact from bilateral hip arthroplasties. The bladder is normal as visualized. The uterus is surgically absent. No adnexal lesion is seen. There are small bilateral fat- containing groin hernias. Skeletal structures: The skeletal structures are osteopenic. There is lumbosacral spondylosis with postsurgical change from laminectomy and posterior fusion seen extending from L1-S1. Interpedicular screws are present at all levels. Lucency around the interpedicular screws at S1 suggests loosening. No lytic or blastic lesions are seen. Bilateral hip arthroplasties are in place. Soft tissues: A fluid collection seen in the posterior midline subcutaneous soft tissues overlying the laminectomy site measures approximately 9 x 3.5 x 3 cm. IMPRESSION: 1. There is postsurgical change from right colonic resection with ileocolic anastomosis. 2. There is a small bowel obstruction with a complex transition point in the right lower quadrant. Interloop fluid and infiltration is seen around the small bowel loops in the right lower quadrant at the transition point. This is likely on the basis of adhesions. Given the somewhat complex appearance a closed loop type obstruction is not entirely excluded. Surgical assessment is advised. 3. No focally thick-walled bowel loops are identified. There is no pneumatosis intestinalis or portal venous gas, and no intraperitoneal free air is seen. 4. A 17 mm ovoid cystic lesion in the pancreatic neck is typical for a sidebranch IPMN. Nonemergent GI follow-up is recommended. 5. Extensive postlaminectomy change is seen throughout the lumbar spine as above. A large subcutaneous fluid collection in the posterior midline at the laminectomy levels likely represents a seroma. The sterility of this fluid cannot be assessed imaging. 6. Lucency around the interpedicular screws at S1 suggests loosening. 7. Advanced colonic diverticulosis without CT evidence of acute diverticulitis. 8. Advanced coronary artery atherosclerosis. 9. Additional findings as above. ACT 112: Negative or not required by law. Electronically signed by: Ramesh Corrales M.D. 09/28/2022 7:11 AM Chest X-Ray 09/28/22 04:59 SINGLE VIEW CHEST CLINICAL HISTORY: Nausea and vomiting. Generalized abdominal pain. FINDINGS: An AP, portable, upright chest radiograph is obtained. No prior studies are available for comparison at the time of dictation. The cardiomediastinal silhouette is top normal for projection noting atherosclerotic calcification of the thoracic aorta. The lungs and pleural spaces are clear. No pneumothorax is seen. The skeletal structures are osteopenic. The bony thorax is grossly intact. Bilateral shoulder arthroplasties are in place. Fusion hardware is seen in the lumbar spine. IMPRESSION: No active disease in the chest. ACT 112: Negative or not required by law. Electronically signed by: Ramesh Corrales M.D. 09/28/2022 7:50 AM Supervising Physician Co-Signing Physician Notes The patient was seen by me. The chart was reviewed. Case discussed with FEROZ Jernigan. Agree with assessment and plan PG Care Time/CCT Total # of Minutes Spent Total Time Spent with Patient: Total time spent is greater than 50% in coordination of care (as documented) at patient's floor/unit and/or counseling patient: Coding Level of Care Code 65960 INT INP/OBS CARE 3/75MIN Diagnoses Small bowel obstruction K56.609 CAD (coronary atherosclerotic disease) I25.10 H/O: HTN (hypertension) Z86.79 HLD (hyperlipidemia) E78.5 Nausea & vomiting R11.2 Abdominal pain R10.9 UTI (urinary tract infection) N39.0
[2022-09-28 09:17] LABS: Appearance Urine Cloudy (Clear); Bacteria Urine Automated 4+ (Negative); Bilirubin Urine Negative (Negative); Blood Urine Negative (Negative); Color Urine Yellow; Epithelial Cell Urine Auto >30 /lpf (0-5); Glucose Urine UA 3+ (Negative); Ketones Urine Negative (Negative); Leukocyte Esterase Urine Negative (Negative); Nitrite Urine Negative (Negative); Protein Urine Negative (Negative); RBC Urine Automated 0-4 /hpf (0-4); Specific Gravity Urine > 1.045 (1.000-1.030); Urobilinogen Urine Negative (Negative)
--- NOTE | 2022-09-28 10:51 | Electrocardiogram Report ---
Test Reason : Blood Pressure : / mmHG Vent. Rate : 066 BPM Atrial Rate : 066 BPM P-R Int : 222 ms QRS Dur : 084 ms QT Int : 402 ms P-R-T Axes : 036 -57 046 degrees QTc Int : 421 ms Sinus rhythm with 1st degree A-V block Left axis deviation Anteroseptal infarct , age undetermined Abnormal ECG No previous ECGs available Confirmed by Aroldo Mehta ([id number]) on 09/28/2022 10:51:20 AM Referred By: REFERRED SELF Confirmed By:Aroldo Mehta
[2022-09-28] MEDS ORDERED: CARBOHYDRATES FOR HYPOGLYCEMIA PO PRN (10:53)
[2022-09-28] MEDS ORDERED: GLUCAGON FOR INJ 1 MG VIAL SQ PRN (10:53)
[2022-09-28] MEDS ORDERED: DEXTROSE 50% 50 ML SYRINGE IV PRN (10:53)
[2022-09-28] MEDS ORDERED: GLUCOSE 40% GEL 15 GM TUBE PO PRN (10:53)
[2022-09-28] MEDS ORDERED: GLUCOSE 10 TAB/TUBE PO PRN (10:53)
[2022-09-28] MEDS ORDERED: ONDANSETRON INJ 2 MG/ML 2 ML VIAL IV PRN (10:53)
[2022-09-28] MEDS ORDERED: PHARMACY GLYCEMIC MGMT CONSULT PRN (10:53)
[2022-09-28] MEDS ORDERED: FAMOTIDINE 20 MG in SYRINGE 3 ML IV ONE (11:15)
[2022-09-28] MEDS ORDERED: Nursing to Pharmacy Communication SCH (11:15)
[2022-09-28] MEDS ORDERED: INSULIN ASPART PER UNIT CHARGE SC SCH (11:30)
[2022-09-28] MEDS: D5NSS + 20MEQ KCL 20 MEQ/1,000 ML BAG IV SCH ×2 (11:32→19:29)
[2022-09-28] MEDS: INSULIN ASPART PER UNIT CHARGE SC SCH ×2 (12:18→18:05)
[2022-09-28] MEDS: ENOXAPARIN INJ 40 MG/0.4 ML SYR SQ SCH (12:25)
[2022-09-28] MEDS: ACETAMINOPHEN 1,000 MG/100 ML VIAL IV PRN ×2 (13:40→23:34)
--- NOTE | 2022-09-28 14:30 | Pharmacy Report ---
Pharmacy Glycemic Short Note 2 - Date of Service September 28, 2022 - Glycemic Short BSG Results (Last 24 hours): 09/28/22 09/28/22 04:44 12:04 Glucose 182 H POC Glucose 86 OUTPATIENT ANTIDIABETIC REGIMEN: * Toujeo 39 units SC HS * Jardiance 25 mg PO daily * Ozempic 2 mg SC weekly on Mondays HbA1c ordered for 09/29/22 ASSESSMENT: * SUE is a 77 year old female admitted with SBO - currently NPO * Presenting BSG of 182 and afternoon BSG of 86 mg/dL * D5/NSS + 20KCl infusing at 125 mL/hr * Will utilize conservative initial insulin dosing (up to max of ~50% of home basal) while NPO PLAN FOR INPATIENT GLYCEMIC CONTROL: * Hold outpatient oral diabetes medications * Basal insulin * Lantus 0-10-20 units SC HS (see EHR for details) * Bolus insulin * NovoLog per scale ACHS or Q6hrs while NPO * Goal Range: Low 110 mg/dL - High 140 mg/dL * Correction Factor: 30 mg/dL/unit * Nutritional / Prandial insulin per carb ratio of 1 unit per 10 grams CHO consumed
[2022-09-28] MEDS: MoRPHine SULFATE 2 MG/ML CARP IV PRN (14:47)
[2022-09-28] MEDS: LANTUS PER UNIT CHARGE SC SCH (21:11)
[2022-09-29] MEDS: INSULIN ASPART PER UNIT CHARGE SC SCH ×5 (03:22→23:54)
[2022-09-29] MEDS: D5NSS + 20MEQ KCL 20 MEQ/1,000 ML BAG IV SCH (03:46)
--- NOTE | 2022-09-29 06:03 | Surgery Progress Note ---
Date of Service September 29, 2022 Assessment & Plan (1) Small bowel obstruction: Plan: Patient has been admitted on the hospitalist service. Recommend continuing care as follows: Provide analgesics and antiemetics as needed As patient's abdomen is nondistended and she does not have any nausea or vomiting, coupled with the fact that she is passing flatus I feel we can continue to hold on placing an NG tube at this time. This modality may need to be revisited if patient has any clinical deterioration. KUB has been ordered for this morning and is pending. A.m. labs this morning are pending Maintain n.p.o. status for the present time. Consideration be given to advancing diet based on her KUB results as well as serial clinical exams. Continue IV fluid for hydration Encourage ambulation Admission and Anticipated Discharge Date Admission Date: September 28, 2022 Supervising Physician Co-Signing Physician Notes Patient seen and examined, labs reviewed, agree with above. Admitted with SBO, feels better than upon arrival. Passing flatus. On exam afebrile stable vitals, abdomen soft, slightly distended, slightly tender to palpation with no guarding or rebound. KUB pending. Continue with sips and chips, if KUB improved continues with bowel function return, may advance diet to clear liquids. Subjective Patient denies any nausea or vomiting. She continues to have some abdominal tenderness and this morning is primary located just to the left of the umbilicus. Patient notes that she has passed a small amount of flatus since admission. Physical Exam Gastrointestinal (Abdomen): Abdomen is soft, nonrigid, and nondistended. There is no rebound tenderness or guarding. Pain elicited with palpation greatest near the umbilicus and just to the left of the umbilicus. Results & Data Vital Signs (Past 12 Hours) Vital Signs Temp Pulse Resp BP Pulse Ox O2 Del Method 09/28/22 21:10 Room Air 09/28/22 21:12 36.8 C 62 16 132/63 96 Room Air PG Care Time/CCT Total # of Minutes Spent Total Time Spent with Patient: Total time spent is greater than 50% in coordination of care (as documented) at patient's floor/unit and/or counseling patient: Coding Level of Care Code 67589 SUB INP/OBS CARE 03/27MIN Diagnoses Small bowel obstruction K56.609
[2022-09-29] MEDS: MoRPHine SULFATE 2 MG/ML CARP IV PRN (06:56)
[2022-09-29 07:21] LABS: Basophils # (auto) 0.03 K/uL (0-0.2); Basophils % (auto) 0.3 %; Eosinophils # (auto) 0.09 K/uL (0-0.50); Eosinophils % (auto) 0.9 %; Hematocrit (blood only) 47.5 % (37.0-47.0); Hemoglobin 15.8 g/dl (12.0-16.0); Immature Granulocytes # (auto) 0.05 K/uL (0.01-0.20); Immature Granulocytes % (auto) 0.5 %; Lymphocytes # (auto) 1.51 K/uL (1.2-3.4); Lymphocytes % (auto) 14.8 %; Mean Corpuscular Hemoglobin 31.1 pg (25.0-34.0); Mean Corpuscular Hgb Conc 33.3 g/dL (32.0-36.0); Mean Corpuscular Volume 93.5 fL (80.0-100.0); Mean Platelet Volume 9.9 fL (9.4-12.4); Monocytes # (auto) 0.89 K/uL (0.11-0.59); Monocytes % (auto) 8.7 %; Neutrophils # (auto) 7.64 K/uL (1.40-6.50); Neutrophils % (auto) 74.8 %; Platelet Count 155 K/uL (130-400); RDW Standard Deviation 44.9 fL (36.4-46.3); Red Blood Count 5.08 M/uL (4.20-5.40); White Blood Count 10.21 K/ul (4.8-10.8)
[2022-09-29 07:36] LABS: Albumin Globulin Ratio 1.4 (0.9-2); Albumin Level 3.5 gm/dl (3.4-5.0); BUN Creatinine Ratio 16.3 (10-20); Bilirubin,Total 0.6 mg/dl (0.2-1.0); Calcium 9.2 mg/dl (8.6-10.3); Creatinine Clr Calc Pharmacy 57.2 ml/min; Est GFR (African American) 82.4 ml/min; Est GFR (Non-African American) 71.1 ml/min; Globulin 2.5 gm/dl (2.5-4.0); Potassium 4.8 mmol/L (3.5-5.1)
[2022-09-29 07:44] LABS: Prothrombin Time 10.9 Seconds (9.0-12.0)
[2022-09-29 07:50] LABS: Estimated Average Glucose 143 mg/dl; Hemoglobin A1C 6.6 % (4.5-5.6)
--- NOTE | 2022-09-29 08:26 | Hospitalist Progress Note ---
Date of Service September 29, 2022 Assessment & Plan (1) Small bowel obstruction: Plan: admitted w/ n/v/abdominal pain since last evening, inability to move her bowels Lactic acid elevated, normalized on repeat. No fevers but did report possible chills. WBC wnl. Hgb elevated 16.4. K 3.4, Ca 10.6. BUN/Cr 20/1.0. LFTs wnl. Trop 2.7 (no CP/SOB reported). CTAP w/ small bowel obstruction with a complex transition point in the right lower quadrant. Interloop fluid and infiltration is seen around the small bowel loops in the right lower quadrant at the transition point. This is likely on the basis of adhesions. Given the somewhat complex appearance a closed loop type obs truction is not entirely excluded. Surgical assessment is advised. Surgery consulted and following Switched IVF to NSS @ 125cc/hr and discontinue K given up to 4.8 today No NGT Passing gas KUB improvement noted Ok w/ surgery to try ice chips/sips -- discussed w/ patient to alert of any issues Pain control/antiemetics prn Famotidine IVP daily to continue (although had reported no underlying reflux since her hiatal hernia repair) PT/OT consulted DVT proph: Lovenox SQ while inpatient Blood cultures from ER pending, afebrile. NGTD. 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 No SOB/CP reported Holding her aspirin/atenolol at present No CP/SOB reported -- if tolerating sips/chips can plan to resume in AM (4) H/O: HTN (hypertension): Plan: holding home meds, monitor -- BP currently stable 125/70 can add hydralazine IV if needed (5) HLD (hyperlipidemia): Plan: holding home meds while npo (6) Nausea & vomiting: Plan: antiemetics as above, no further emesis KUB w/ improvement -- ice chips/sips trial today Antiemetics prn Of note, need GI f/u for possible IMPN branch on CTAP on admission. Lipase wnl on admit (7) Abdominal pain: Plan: IMPROVING suspected 2nd to #1 UA/cx ordered given recent UTI/abx per patient Also w/ back surgery last year, does have seroma on imaging but not reporting s ignificant back pain but will need to continue to monitor. PT/OT consults pending as well as blood cultures Plan Continued inpatient stay trial ice sips/chips monitor labs/kub in AM Admission and Anticipated Discharge Date Admission Date: September 28, 2022 Supervising Physician Co-Signing Physician Notes The patient was not seen by me. The chart was reviewed. Case discussed with FEROZ Jernigan. Agree with assessment and plan Subjective Eval this morning, therapy at bedside to get up. Reports passing some gas last night and this morning. KUB w/ improvement and per surgery ok to trial some ice chips. Discussed if any worsening pain/nausea to STOP and alert nursing however. Discussed urine culture and suspected UTI, she reports she typically is asymptomatic from such until it becomes and problem but she suspected some kind of issue because of the increased frequency. Discussed started abx and will monitoring cultures. Questions/concerns addressed at this time. Physical Exam Physical Exam: General: WD female resting in bed, appears much more comfortable, NAD, therapy at bedside HEENT: head normocephalic, atraumatic, dry mm, trachea midline CV: RRR, no significant m/r/g, no significant edema/calf tenderness, pulses palpable Resp: CTA, diminished in bases, no w/c/r, on room air GI: increase in bowel sounds, generalized tenderness worse suprapubic/lower abdomen, soft, no rigidity, voluntary guarding : no tsai MSK/Neuro: no focal deficits, follows commands, no slurred speech/facial droop Psych: Alert to person/place/time, cooperative with exam Skin: perfused, no obvious rashes appreciated Results & Data Results & Data Vital Signs (Past 12 Hours) Vital Signs Temp Pulse Resp BP BP Pulse Ox O2 Del Method 09/29/22 07:26 37.0 C 63 15 125/70 96 Room Air 09/28/22 21:10 Room Air 09/28/22 21:12 36.8 C 62 16 132/63 96 Room Air Laboratory Results 09/29/22 09/29/22 09/29/22 Range/Units 06:50 06:50 06:50 WBC (4.8-10.8) K/ul RBC (4.20-5.40) M/uL Hgb (12.0-16.0) g/dl Hct (37.0-47.0) % MCV (80.0-100.0) fL MCH (25.0-34.0) pg MCHC (32.0-36.0) g/dL RDW Std Deviation (36.4-46.3) fL RDW Coeff of Herbie (11.5-14.5) % Plt Count (130-400) K/uL MPV (9.4-12.4) fL Immature Gran % (Auto) % Neut % (Auto) % Lymph % (Auto) % Coffee % (Auto) % Eos % (Auto) % Baso % (Auto) % Neut # (Auto) (1.40-6.50) K/uL Lymph # (Auto) (1.2-3.4) K/uL Coffee # (Auto) (0.11-0.59) K/uL Eos # (Auto) (0-0.50) K/uL Baso # (Auto) (0-0.2) K/uL Immature Gran # (Auto) (0.01-0.20) K/uL PT 10.9 (9.0-12.0) Seconds INR 1.0 (0.9-1.1) Sodium 142 (136-145) mmol/L Potassium 4.8 D (3.5-5.1) mmol/L Chloride 113 H (98-107) mmol/L Carbon Dioxide 24 (21-32) mmol/L Anion Gap 5 (3-11) BUN 13 (6-23) mg/dl Creatinine 0.80 (0.6-1.2) mg/dl Est Cr Clr Drug Dosing 57.2 ml/min Est GFR ( Amer) 82.4 ml/min Est GFR (Non-Af Amer) 71.1 ml/min BUN/Creatinine Ratio 16.3 (10-20) Glucose 136 H (70-99(Fasting)) mg/dl POC Glucose (70-99) mg/dl Estimat Average Glucose 143 mg/dl Hemoglobin A1c 6.6 H (4.5-5.6) % Calcium 9.2 (8.6-10.3) mg/dl Magnesium 1.9 (1.7-2.4) mg/dl Total Bilirubin 0.6 (0.2-1.0) mg/dl AST 14 (13-39) U/L ALT 11 (7-52) U/L Alkaline Phosphatase 55 (34-104) U/L Total Protein 6.0 (6.0-8.3) gm/dl Albumin 3.5 (3.4-5.0) gm/dl Globulin 2.5 (2.5-4.0) gm/dl Albumin/Globulin Ratio 1.4 (0.9-2) SARS-CoV-2, RNA, NAAT (NEGATIVE) 09/29/22 09/29/22 09/28/22 Range/Units 06:50 06:01 23:35 WBC 10.21 (4.8-10.8) K/ul RBC 5.08 (4.20-5.40) M/uL Hgb 15.8 (12.0-16.0) g/dl Hct 47.5 H (37.0-47.0) % MCV 93.5 (80.0-100.0) fL MCH 31.1 (25.0-34.0) pg MCHC 33.3 (32.0-36.0) g/dL RDW Std Deviation 44.9 (36.4-46.3) fL RDW Coeff of Herbie 13.0 (11.5-14.5) % Plt Count 155 (130-400) K/uL MPV 9.9 (9.4-12.4) fL Immature Gran % (Auto) 0.5 % Neut % (Auto) 74.8 % Lymph % (Auto) 14.8 % Coffee % (Auto) 8.7 % Eos % (Auto) 0.9 % Baso % (Auto) 0.3 % Neut # (Auto) 7.64 H (1.40-6.50) K/uL Lymph # (Auto) 1.51 (1.2-3.4) K/uL Coffee # (Auto) 0.89 H (0.11-0.59) K/uL Eos # (Auto) 0.09 (0-0.50) K/uL Baso # (Auto) 0.03 (0-0.2) K/uL Immature Gran # (Auto) 0.05 (0.01-0.20) K/uL PT (9.0-12.0) Seconds INR (0.9-1.1) Sodium (136-145) mmol/L Potassium (3.5-5.1) mmol/L Chloride (98-107) mmol/L Carbon Dioxide (21-32) mmol/L Anion Gap (3-11) BUN (6-23) mg/dl Creatinine (0.6-1.2) mg/dl Est Cr Clr Drug Dosing ml/min Est GFR ( Amer) ml/min Est GFR (Non-Af Amer) ml/min BUN/Creatinine Ratio (10-20) Glucose (70-99(Fasting)) mg/dl POC Glucose 127 H 109 H (70-99) mg/dl Estimat Average Glucose mg/dl Hemoglobin A1c (4.5-5.6) % Calcium (8.6-10.3) mg/dl Magnesium (1.7-2.4) mg/dl Total Bilirubin (0.2-1.0) mg/dl AST (13-39) U/L ALT (7-52) U/L Alkaline Phosphatase (34-104) U/L Total Protein (6.0-8.3) gm/dl Albumin (3.4-5.0) gm/dl Globulin (2.5-4.0) gm/dl Albumin/Globulin Ratio (0.9-2) SARS-CoV-2, RNA, NAAT (NEGATIVE) 09/28/22 09/28/22 09/28/22 Range/Units 21:04 17:55 12:04 WBC (4.8-10.8) K/ul RBC (4.20-5.40) M/uL Hgb (12.0-16.0) g/dl Hct (37.0-47.0) % MCV (80.0-100.0) fL MCH (25.0-34.0) pg MCHC (32.0-36.0) g/dL RDW Std Deviation (36.4-46.3) fL RDW Coeff of Herbie (11.5-14.5) % Plt Count (130-400) K/uL MPV (9.4-12.4) fL Immature Gran % (Auto) % Neut % (Auto) % Lymph % (Auto) % Coffee % (Auto) % Eos % (Auto) % Baso % (Auto) % Neut # (Auto) (1.40-6.50) K/uL Lymph # (Auto) (1.2-3.4) K/uL Coffee # (Auto) (0.11-0.59) K/uL Eos # (Auto) (0-0.50) K/uL Baso # (Auto) (0-0.2) K/uL Immature Gran # (Auto) (0.01-0.20) K/uL PT (9.0-12.0) Seconds INR (0.9-1.1) Sodium (136-145) mmol/L Potassium (3.5-5.1) mmol/L Chloride (98-107) mmol/L Carbon Dioxide (21-32) mmol/L Anion Gap (3-11) BUN (6-23) mg/dl Creatinine (0.6-1.2) mg/dl Est Cr Clr Drug Dosing ml/min Est GFR ( Amer) ml/min Est GFR (Non-Af Amer) ml/min BUN/Creatinine Ratio (10-20) Glucose (70-99(Fasting)) mg/dl POC Glucose 84 100 H 86 (70-99) mg/dl Estimat Average Glucose mg/dl Hemoglobin A1c (4.5-5.6) % Calcium (8.6-10.3) mg/dl Magnesium (1.7-2.4) mg/dl Total Bilirubin (0.2-1.0) mg/dl AST (13-39) U/L ALT (7-52) U/L Alkaline Phosphatase (34-104) U/L Total Protein (6.0-8.3) gm/dl Albumin (3.4-5.0) gm/dl Globulin (2.5-4.0) gm/dl Albumin/Globulin Ratio (0.9-2) SARS-CoV-2, RNA, NAAT (NEGATIVE) 09/28/22 Range/Units 09:32 WBC (4.8-10.8) K/ul RBC (4.20-5.40) M/uL Hgb (12.0-16.0) g/dl Hct (37.0-47.0) % MCV (80.0-100.0) fL MCH (25.0-34.0) pg MCHC (32.0-36.0) g/dL RDW Std Deviation (36.4-46.3) fL RDW Coeff of Herbie (11.5-14.5) % Plt Count (130-400) K/uL MPV (9.4-12.4) fL Immature Gran % (Auto) % Neut % (Auto) % Lymph % (Auto) % Coffee % (Auto) % Eos % (Auto) % Baso % (Auto) % Neut # (Auto) (1.40-6.50) K/uL Lymph # (Auto) (1.2-3.4) K/uL Coffee # (Auto) (0.11-0.59) K/uL Eos # (Auto) (0-0.50) K/uL Baso # (Auto) (0-0.2) K/uL Immature Gran # (Auto) (0.01-0.20) K/uL PT (9.0-12.0) Seconds INR (0.9-1.1) Sodium (136-145) mmol/L Potassium (3.5-5.1) mmol/L Chloride (98-107) mmol/L Carbon Dioxide (21-32) mmol/L Anion Gap (3-11) BUN (6-23) mg/dl Creatinine (0.6-1.2) mg/dl Est Cr Clr Drug Dosing ml/min Est GFR ( Amer) ml/min Est GFR (Non-Af Amer) ml/min BUN/Creatinine Ratio (10-20) Glucose (70-99(Fasting)) mg/dl POC Glucose (70-99) mg/dl Estimat Average Glucose mg/dl Hemoglobin A1c (4.5-5.6) % Calcium (8.6-10.3) mg/dl Magnesium (1.7-2.4) mg/dl Total Bilirubin (0.2-1.0) mg/dl AST (13-39) U/L ALT (7-52) U/L Alkaline Phosphatase (34-104) U/L Total Protein (6.0-8.3) gm/dl Albumin (3.4-5.0) gm/dl Globulin (2.5-4.0) gm/dl Albumin/Globulin Ratio (0.9-2) SARS-CoV-2, RNA, NAAT NEGATIVE (NEGATIVE) Diagnostic Findings KUB X-Ray 09/29/22 07:00 KUB HISTORY: Small bowel obstruction. Follow-up. COMPARISON: Abdomen and pelvis CT 09/28/2022. FINDINGS: Suture material again noted within the right side the abdomen. There is gas and stool within the nondistended colon. There are few prominent gas- filled loops of small bowel seen within the abdomen measuring up to 2.4 cm in diameter. This is improved compared to the prior study and favors a resolving partial small bowel obstruction. Extensive lumbar spinal fusion hardware again noted. There are bilateral total hip arthroplasties. No renal calculi. No ureteral calculi. No pneumoperitoneum or pneumatosis. IMPRESSION: Interval improvement in the dilated gas-filled loops of small bowel within the abdomen. This favors a resolving partial small bowel obstruction. Continued foll ow-up recommended. ACT 112: Negative or not required by law. Electronically signed by: Jevon Hamm M.D. 09/29/2022 9:47 AM PG Care Time/CCT Total # of Minutes Spent Total Time Spent with Patient: Total time spent is greater than 50% in coordination of care (as documented) at patient's floor/unit and/or counseling patient: Coding Level of Care Code 07859 SUB INP/OBS CARE 3/50MIN Diagnoses Small bowel obstruction K56.609 UTI (urinary tract infection) N39.0 CAD (coronary atherosclerotic disease) I25.10 H/O: HTN (hypertension) Z86.79 HLD (hyperlipidemia) E78.5 Nausea & vomiting R11.2 Abdominal pain R10.9
[2022-09-29] MEDS ORDERED: LACTATED RINGER'S 1,000 ML IV SCH (08:30)
[2022-09-29] MEDS: SODIUM CHLORIDE 0.9% 1000ML 1,000 ML IV SCH ×2 (08:34→16:46)
[2022-09-29] MEDS: FAMOTIDINE 20 MG in SYRINGE 3 ML IV SCH (08:40)
[2022-09-29 09:10] LABS: Magnesium 1.9 mg/dl (1.7-2.4)
[2022-09-29] MEDS: cefTRIAXone SODIUM 1,000 MG in DEXTROSE 5% AD-VAN 50 ML IV SCH (09:19)
--- NOTE | 2022-09-29 09:49 | XRay Report ---
KUB HISTORY: Small bowel obstruction. Follow-up. COMPARISON: Abdomen and pelvis CT 09/28/2022. FINDINGS: Suture material again noted within the right side the abdomen. There is gas and stool withi n the nondistended colon. There are few prominent gas-filled loops of small bowel seen within the abd omen measuring up to 2.4 cm in diameter. This is improved compared to the prior study and favors a re solving partial small bowel obstruction. Extensive lumbar spinal fusion hardware again noted. There a re bilateral total hip arthroplasties. No renal calculi. No ureteral calculi. No pneumoperitoneum or pneumatosis. IMPRESSION: Interval improvement in the dilated gas-filled loops of small bowel within the abdomen. This favors a resolving partial small bowel obstruction. Continued follow-up recommended. ACT 112: Negative or not required by law. Electronically signed by: Jevon Hamm M.D. 09/29/2022 9:47 AM
[2022-09-29] MEDS: ENOXAPARIN INJ 40 MG/0.4 ML SYR SQ SCH (10:04)
[2022-09-29] MEDS ORDERED: PANTOprazole 40 MG in SYRINGE 0 ML IV ONE (17:00)
[2022-09-29] MEDS: D5W AND NSS 1,000 ML IV SCH (18:23)
[2022-09-29] MEDS: ACETAMINOPHEN 1,000 MG/100 ML VIAL IV PRN (18:46)
--- NOTE | 2022-09-29 18:58 | XRay Report ---
KUB HISTORY: worse abdominal pain, admit w/ SBO COMPARISON: KUB 09/29/2022. FINDINGS: Lumbar spinal fusion hardware and bilateral total hip arthroplasties are again noted. The v isualized lung bases are clear. There are suture material within the right side the abdomen. A few no ndilated gas-filled loops of small bowel are again seen within the left side the abdomen. This favors a resolving partial bowel small bowel obstruction. Nondilated gas and stool-filled colon is again no jorge luis. No renal calculi. No ureteral calculi. No pneumoperitoneum or pneumatosis. IMPRESSION: No dilated loops of bowel identified. A few nondilated gas-filled loops of small bowel within the lef t side of the abdomen persist and favor a resolving partial small bowel obstruction. ACT 112: Negative or not required by law. Electronically signed by: Jevon Hamm M.D. 09/29/2022 6:56 PM
[2022-09-29] MEDS: LANTUS PER UNIT CHARGE SC SCH (20:35)
[2022-09-30] MEDS: D5W AND NSS 1,000 ML IV SCH ×3 (01:40→20:31)
[2022-09-30] MEDS: ACETAMINOPHEN 1,000 MG/100 ML VIAL IV PRN (03:07)
[2022-09-30] MEDS: INSULIN ASPART PER UNIT CHARGE SC SCH ×4 (05:51→23:59)
[2022-09-30 07:55] LABS: Basophils # (auto) 0.03 K/uL (0-0.2); Basophils % (auto) 0.4 %; Eosinophils # (auto) 0.22 K/uL (0-0.50); Eosinophils % (auto) 3.1 %; Hematocrit (blood only) 40.5 % (37.0-47.0); Hemoglobin 13.4 g/dl (12.0-16.0); Immature Granulocytes # (auto) 0.03 K/uL (0.01-0.20); Immature Granulocytes % (auto) 0.4 %; Lymphocytes # (auto) 1.46 K/uL (1.2-3.4); Lymphocytes % (auto) 20.3 %; Mean Corpuscular Hemoglobin 31.2 pg (25.0-34.0); Mean Corpuscular Hgb Conc 33.1 g/dL (32.0-36.0); Mean Corpuscular Volume 94.2 fL (80.0-100.0); Mean Platelet Volume 10.2 fL (9.4-12.4); Monocytes # (auto) 0.44 K/uL (0.11-0.59); Monocytes % (auto) 6.1 %; Neutrophils % (auto) 69.7 %; Platelet Count 132 K/uL (130-400); RDW Coefficient of Variation 12.7 % (11.5-14.5); RDW Standard Deviation 44.1 fL (36.4-46.3); White Blood Count 7.18 K/ul (4.8-10.8)
[2022-09-30] MEDS: cefTRIAXone SODIUM 1,000 MG in DEXTROSE 5% AD-VAN 50 ML IV SCH (08:36)
[2022-09-30 08:40] LABS: Albumin Globulin Ratio 1.3 (0.9-2); Albumin Level 3.1 gm/dl (3.4-5.0); BUN Creatinine Ratio 9.2 (10-20); Bilirubin,Total 0.5 mg/dl (0.2-1.0); Calcium 8.9 mg/dl (8.6-10.3); Creatinine Clr Calc Pharmacy 59.5 ml/min; Est GFR (African American) 87.7 ml/min; Est GFR (Non-African American) 75.7 ml/min; Globulin 2.3 gm/dl (2.5-4.0); Magnesium 1.7 mg/dl (1.7-2.4); Potassium 4.6 mmol/L (3.5-5.1); Total Protein 5.4 gm/dl (6.0-8.3)
[2022-09-30] MEDS: FAMOTIDINE 20 MG in SYRINGE 3 ML IV SCH (08:40)
--- NOTE | 2022-09-30 08:40 | Surgery Progress Note ---
Date of Service September 30, 2022 Assessment & Plan (1) Small bowel obstruction: Plan: Patient reports she is feeling much better than yesterday and last night Denies nausea, vomiting, bowel movements Passing small amount of flatus Has LLQ abdominal pain with palpation other arguelles abdomen is soft non-distended KUB pending this AM WBC wnl BMP pending this AM Encouraged ambulation in halls VSS Patient expressed concern and requested to be able to take her routine daily medication Has a history of depression and reported that when she does not take her medication she feels that her depression comes back Also expressed concern of not taking her daily baby aspirin, reported that she has had two cardiac stents placed (follows with cardiology in [place]) Hospitalist notified that patient may restart routine medication from a general surgical stand point, with sips of water otherwise keep NPO for now Admission and Anticipated Discharge Date Admission Date: September 28, 2022 Supervising Physician Co-Signing Physician Notes Patient seen and examined, labs and image reviewed, agree with above. Admitted with SBO, IV return of bowel function. Passing flatus and small bowel movements. Feels much better than on arrival. On exam afebrile stable vitals, abdomen soft, nondistended, nontender. KUB shows improvement in her small bowel dilation. We will advance her diet as tolerated, this may be related to scar tissue from prior surgeries versus her recently taking Ozempic. 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 Subjective Patient reports she is feeling much better than yesterday and last night Denies nausea, vomiting, bowel movements Passing small amount of flatus Has LLQ abdominal pain with palpation Patient expressed concern and requested to be able to take her routine daily medication Has a history of depression and reported that when she does not take her medication she feels that her depression comes back Also expressed concern of not taking her daily baby aspirin, that she has had two cardiac stents placed Review of Systems Constitutional: no fever, no chills and no sweats Gastrointestinal: + abdominal pain; no bloating, no nausea and no vomiting Psychiatric: + depression Physical Exam Physical Exam: alert, awake Constitutional: well developed, well nourished, cooperative and comfortable; no acute distress Respiratory: normal respiratory effort and able to speak in complete sentences; no respiratory distress Cardiovascular: Rate/Rhythm: regular rate Gastrointestinal (Abdomen): Inspection/Auscultation: + abdominal surgical scar (patient reports history of hysterectomy); abdomen not distended Percussion/Palpation: + abdomen tender (LLQ ) and abdomen soft Results & Data Vital Signs (Past 12 Hours) Vital Signs Temp Pulse Resp BP Pulse Ox O2 Del Method 09/30/22 06:04 97.9 F 69 18 135/70 96 Room Air 09/29/22 22:51 98.8 F 58 L 16 111/60 96 Room Air PG Care Time/CCT Total # of Minutes Spent Total Time Spent with Patient: Total time spent is greater than 50% in coordination of care (as documented) at patient's floor/unit and/or counseling patient: Coding Level of Care Code 44599 SUB INP/OBS CARE 2/35MIN Diagnoses Small bowel obstruction K56.609
[2022-09-30] MEDS: ENOXAPARIN INJ 40 MG/0.4 ML SYR SQ SCH (10:32)
--- NOTE | 2022-09-30 13:11 | XRay Report ---
KUB CLINICAL HISTORY: f/u SBO COMPARISON STUDY: CT of the abdomen and pelvis September 28, 2022. KUB September 29, 2022. FINDINGS: No dilated loops of small bowel are identified on this exam. Small bowel dilatation has lik margarito improved. Postoperative findings within the spine and hips are incidentally noted. IMPRESSION: Findings suggestive of an improving small bowel obstruction. ACT 112: Negative or not required by law. Electronically signed by: Jose Segura M.D. 09/30/2022 1:08 PM
--- NOTE | 2022-09-30 14:19 | Pharmacy Report ---
Pharmacy Glycemic Short Note 2 - Date of Service September 30, 2022 - Glycemic Short BSG Results (Last 24 hours): 09/29/22 09/29/22 09/29/22 18:08 18:10 18:33 Glucose POC Glucose 57 L* 49 L* 89 09/29/22 09/29/22 09/30/22 20:32 23:48 05:47 Glucose POC Glucose 95 97 96 09/30/22 09/30/22 07:23 12:00 Glucose 126 H POC Glucose 89 OUTPATIENT ANTIDIABETIC REGIMEN: * Toujeo 39 units SC HS * Jardiance 25 mg PO daily * Ozempic 2 mg SC weekly on Mondays HbA1c 6.6% (09/29/22) ASSESSMENT: 09/30/22 * BSGs yesterday were 127-95-49/89-95. Today BSGs are 96-89 mg/dL. * Patient has received NO insulin this admission. D5NS@ @ 125 mL/hr started when patient had hypoglycemic event. * Continue q6 checks. Discontinued any orders for basal insulin. BACKGROUND * SUE is a 77 year old female admitted with SBO - currently NPO * Presenting BSG of 182 and afternoon BSG of 86 mg/dL * D5/NSS + 20KCl infusing at 125 mL/hr * Will utilize conservative initial insulin dosing (up to max of ~50% of home basal) while NPO PLAN FOR INPATIENT GLYCEMIC CONTROL: * Hold outpatient oral diabetes medications * Basal insulin * hold while NPO * Bolus insulin * NovoLog per scale ACHS or Q6hrs while NPO * Goal Range: Low 110 mg/dL - High 140 mg/dL * Correction Factor: 30 mg/dL/unit * Nutritional / Prandial insulin per carb ratio of 1 unit per 10 grams CHO consumed
[2022-09-30] MEDS ORDERED: ATENOLOL 25 MG TABLET PO ONE (17:12)
[2022-09-30] MEDS ORDERED: ROSUVASTATIN CALCIUM 20 MG TAB PO SCH (21:00)
--- NOTE | 2022-09-30 22:55 | Hospitalist Progress Note ---
Date of Service September 30, 2022 Assessment & Plan (1) Small bowel obstruction: Plan: admitted w/ n/v/abdominal pain since last evening, inability to move her bowels Lactic acid elevated, normalized on repeat. No fevers but did report possible chills. WBC wnl. Hgb elevated 16.4. K 3.4, Ca 10.6. BUN/Cr 20/1.0. LFTs wnl. Trop 2.7 (no CP/SOB reported). CTAP w/ small bowel obstruction with a complex transition point in the right lower quadrant. Interloop fluid and infiltration is seen around the small bowel loops in the right lower quadrant at the transition point. This is likely on the basis of adhesions. Given the somewhat complex appearance a closed loop type obs truction is not entirely excluded. Surgical assessment is advised. Surgery consulted and following tolerating diet, will contiue to monitor, Resumed home oral meds. Passing gas KUB improvement noted Ok w/ surgery to try ice chips/sips -- discussed w/ patient to alert of any issues Pain control/antiemetics prn Famotidine IVP daily to continue (although had reported no underlying reflux since her hiatal hernia repair) PT/OT consulted DVT proph: Lovenox SQ while inpatient Blood cultures from ER pending, afebrile. NGTD. WBC wnl but L shift noted UA/Cx as below for increased frequency/suprapubic discomfort possible discharge tomorrow dependant on patient's continued improvement. 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 No SOB/CP reported Holding her aspirin/atenolol at present No CP/SOB reported -- if tolerating sips/chips can plan to resume in AM (4) H/O: HTN (hypertension): Plan: holding home meds, monitor -- BP currently stable 125/70 can add hydralazine IV if needed (5) HLD (hyperlipidemia): Plan: holding home meds while npo (6) Nausea & vomiting: Plan: antiemetics as above, no further emesis KUB w/ improvement -- ice chips/sips trial today Antiemetics prn Of note, need GI f/u for possible IMPN branch on CTAP on admission. Lipase wnl on admit (7) Abdominal pain: Plan: IMPROVING suspected 2nd to #1 UA/cx ordered given recent UTI/abx per patient Also w/ back surgery last year, does have seroma on imaging but not reporting significant back pain but will need to continue to monitor. PT/OT consults pending as well as blood cultures Plan Continued inpatient stay trial ice sips/chips Admission and Anticipated Discharge Date Admission Date: September 28, 2022 Subjective Feeling improved. Patient tolerating her diet. Review of Systems Review of Systems: All systems reviewed & are unremarkable except as noted in HPI & below Physical Exam Physical Exam: General: WD female resting in bed, appears much more comfortable, NAD, therapy at bedside HEENT: head normocephalic, atraumatic, dry mm, trachea midline CV: RRR, no significant m/r/g, no significant edema/calf tenderness, pulses palpable Resp: CTA, diminished in bases, no w/c/r, on room air GI: increase in bowel sounds, generalized tenderness worse suprapubic/lower abdomen, soft, no rigidity, voluntary guarding : no tsai MSK/Neuro: no focal deficits, follows commands, no slurred speech/facial droop Psych: Alert to person/place/time, cooperative with exam Skin: perfused, no obvious rashes appreciated Results & Data Results & Data Vital Signs (Past 12 Hours) Vital Signs Temp Pulse Resp BP Pulse Ox O2 Del Method 09/30/22 19:32 37.0 C 72 16 160/83 H 95 Room Air 09/30/22 15:06 37.3 C 79 16 166/80 H 96 Room Air PG Care Time/CCT Total # of Minutes Spent Total Time Spent with Patient: Total time spent is greater than 50% in coordination of care (as documented) at patient's floor/unit and/or counseling patient: Coding Level of Care Code 54436 SUB INP/OBS CARE 2/35MIN Diagnoses Small bowel obstruction K56.609 UTI (urinary tract infection) N39.0 CAD (coronary atherosclerotic disease) I25.10 H/O: HTN (hypertension) Z86.79 HLD (hyperlipidemia) E78.5 Nausea & vomiting R11.2 Abdominal pain R10.9
[2022-10-01] MEDS ORDERED: Nursing to Pharmacy Communication SCH (04:15)
[2022-10-01] MEDS: ACETAMINOPHEN 1,000 MG/100 ML VIAL IV PRN (04:56)
[2022-10-01] MEDS ORDERED: INSULIN ASPART PER UNIT CHARGE SC SCH (06:00)
[2022-10-01 07:42] LABS: Hematocrit (blood only) 43.2 % (37.0-47.0); Hemoglobin 14.8 g/dl (12.0-16.0); Mean Corpuscular Hemoglobin 30.9 pg (25.0-34.0); Mean Corpuscular Hgb Conc 34.3 g/dL (32.0-36.0); Mean Corpuscular Volume 90.2 fL (80.0-100.0); Mean Platelet Volume 10.2 fL (9.4-12.4); Platelet Count 146 K/uL (130-400); RDW Coefficient of Variation 12.4 % (11.5-14.5); RDW Standard Deviation 41.1 fL (36.4-46.3); Red Blood Count 4.79 M/uL (4.20-5.40); White Blood Count 6.53 K/ul (4.8-10.8)
[2022-10-01 08:02] LABS: BUN Creatinine Ratio 9.7 (10-20); Calcium 9.6 mg/dl (8.6-10.3); Creatinine Clr Calc Pharmacy 64.2 ml/min; Est GFR (African American) 93.6 ml/min; Est GFR (Non-African American) 80.8 ml/min; Potassium 3.9 mmol/L (3.5-5.1)
--- NOTE | 2022-10-01 08:22 | Hospitalist Progress Note ---
Date of Service October 01, 2022 Assessment & Plan (1) Small bowel obstruction: Plan: admitted w/ n/v/abdominal pain since last evening, inability to move her bowels Lactic acid elevated, normalized on repeat. No fevers but did report possible chills. WBC wnl. Hgb elevated 16.4. K 3.4, Ca 10.6. BUN/Cr 20/1.0. LFTs wnl. Trop 2.7 (no CP/SOB reported). CTAP w/ small bowel obstruction with a complex transition point in the right lower quadrant. Interloop fluid and infiltration is seen around the small bowel loops in the right lower quadrant at the transition point. This is likely on the basis of adhesions. Given the somewhat complex appearance a closed loop type ob struction is not entirely excluded. Surgical assessment is advised. Surgery consulted and following tolerating diet, will contiue to monitor, Resumed home oral meds. Passing gas KUB improvement noted Ok w/ surgery to try ice chips/sips -- discussed w/ patient to alert of any issues Pain control/antiemetics prn Famotidine IVP daily to continue (although had reported no underlying reflux since her hiatal hernia repair) PT/OT consulted DVT proph: Lovenox SQ while inpatient Blood cultures from ER pending, afebrile. NGTD. WBC wnl but L shift noted UA/Cx as below for increased frequency/suprapubic discomfort possible discharge tomorrow dependant on patient's continued improvement. (2) UTI (urinary tract infection): Plan: of note, patient reporting recent tx for UTI, unknown abx, completed about 4 days [employer] X RAY but did report increased frequency and some lower abd discomfort UA appeared infected, planned to start abx --> cx now w/ GNR x 2 Rocephin IV - f/u cx/s PT/OT consulted as above (3) CAD (coronary atherosclerotic disease): Plan: hx cath s/p stent x 2 in 2013. No SOB/CP reported Holding her aspirin/atenolol at present No CP/SOB reported -- if tolerating sips/chips can plan to resume in AM (4) H/O: HTN (hypertension): Plan: holding home meds, monitor -- BP currently stable 125/70 can add hydralazine IV if needed (5) HLD (hyperlipidemia): Plan: holding home meds while npo (6) Nausea & vomiting: Plan: antiemetics as above, no further emesis KUB w/ improvement -- ice chips/sips trial today Antiemetics prn Of note, need GI f/u for possible IMPN branch on CTAP on admission. Lipase wnl on admit (7) Abdominal pain: Plan: IMPROVING suspected 2nd to #1 UA/cx ordered given recent UTI/abx per patient Also w/ back surgery last year, does have seroma on imaging but not reporting significant back pain but will need to continue to monitor. PT/OT consults pending as well as blood cultures Plan Continued inpatient stay trial ice sips/chips Admission and Anticipated Discharge Date Admission Date: September 28, 2022 Subjective eval this morning, much improved. reported BM prior to KUB, showing resolution. saw by surgery, diet to be advanced will monitor how she does and possible dc tomorrow vs later today if absolutely wanting it. Urine cx still pending -- she belives she was on Cipro previously. Discussed could dc on selection and call if resistance as rocephin covers 24 hours but should have results/sensitivities shortly. --> No urine cx w/ Ecoli x 2, resistant to FLQ. Is sensitive to Bactrim and can consider this at discharge. Results & Data Results & Data Vital Signs (Past 12 Hours) Vital Signs Temp Pulse Resp BP Pulse Ox O2 Del Method 10/01/22 07:28 36.8 C 59 L 17 123/66 99 Room Air Laboratory Results 10/01/22 10/01/22 10/01/22 Range/Units 07:40 06:36 06:36 WBC 6.53 (4.8-10.8) K/ul RBC 4.79 (4.20-5.40) M/uL Hgb 14.8 (12.0-16.0) g/dl Hct 43.2 (37.0-47.0) % MCV 90.2 (80.0-100.0) fL MCH 30.9 (25.0-34.0) pg MCHC 34.3 (32.0-36.0) g/dL RDW Std Deviation 41.1 (36.4-46.3) fL RDW Coeff of Herbie 12.4 (11.5-14.5) % Plt Count 146 (130-400) K/uL MPV 10.2 (9.4-12.4) fL Sodium 139 (136-145) mmol/L Potassium 3.9 (3.5-5.1) mmol/L Chloride 108 H (98-107) mmol/L Carbon Dioxide 24 (21-32) mmol/L Anion Gap 7 (3-11) BUN 7 (6-23) mg/dl Creatinine 0.72 (0.6-1.2) mg/dl Est Cr Clr Drug Dosing 64.2 ml/min Est GFR ( Amer) 93.6 ml/min Est GFR (Non-Af Amer) 80.8 ml/min BUN/Creatinine Ratio 9.7 L (10-20) Glucose 94 (70-99(Fasting)) mg/dl POC Glucose 83 (70-99) mg/dl Calcium 9.6 (8.6-10.3) mg/dl Magnesium (1.7-2.4) mg/dl Total Bilirubin (0.2-1.0) mg/dl AST (13-39) U/L ALT (7-52) U/L Alkaline Phosphatase (34-104) U/L Total Protein (6.0-8.3) gm/dl Albumin (3.4-5.0) gm/dl Globulin (2.5-4.0) gm/dl Albumin/Globulin Ratio (0.9-2) 10/01/22 09/30/22 09/30/22 Range/Units 05:16 23:50 18:26 WBC (4.8-10.8) K/ul RBC (4.20-5.40) M/uL Hgb (12.0-16.0) g/dl Hct (37.0-47.0) % MCV (80.0-100.0) fL MCH (25.0-34.0) pg MCHC (32.0-36.0) g/dL RDW Std Deviation (36.4-46.3) fL RDW Coeff of Herbie (11.5-14.5) % Plt Count (130-400) K/uL MPV (9.4-12.4) fL Sodium (136-145) mmol/L Potassium (3.5-5.1) mmol/L Chloride (98-107) mmol/L Carbon Dioxide (21-32) mmol/L Anion Gap (3-11) BUN (6-23) mg/dl Creatinine (0.6-1.2) mg/dl Est Cr Clr Drug Dosing ml/min Est GFR ( Amer) ml/min Est GFR (Non-Af Amer) ml/min BUN/Creatinine Ratio (10-20) Glucose (70-99(Fasting)) mg/dl POC Glucose 84 83 93 (70-99) mg/dl Calcium (8.6-10.3) mg/dl Magnesium (1.7-2.4) mg/dl Total Bilirubin (0.2-1.0) mg/dl AST (13-39) U/L ALT (7-52) U/L Alkaline Phosphatase (34-104) U/L Total Protein (6.0-8.3) gm/dl Albumin (3.4-5.0) gm/dl Globulin (2.5-4.0) gm/dl Albumin/Globulin Ratio (0.9-2) 09/30/22 09/30/22 Range/Units 12:00 07:23 WBC (4.8-10.8) K/ul RBC (4.20-5.40) M/uL Hgb (12.0-16.0) g/dl Hct (37.0-47.0) % MCV (80.0-100.0) fL MCH (25.0-34.0) pg MCHC (32.0-36.0) g/dL RDW Std Deviation (36.4-46.3) fL RDW Coeff of Herbie (11.5-14.5) % Plt Count (130-400) K/uL MPV (9.4-12.4) fL Sodium 140 (136-145) mmol/L Potassium 4.6 (3.5-5.1) mmol/L Chloride 112 H (98-107) mmol/L Carbon Dioxide 26 (21-32) mmol/L Anion Gap 2 L (3-11) BUN 7 (6-23) mg/dl Creatinine 0.76 (0.6-1.2) mg/dl Est Cr Clr Drug Dosing 59.5 ml/min Est GFR ( Amer) 87.7 ml/min Est GFR (Non-Af Amer) 75.7 ml/min BUN/Creatinine Ratio 9.2 L (10-20) Glucose 126 H (70-99(Fasting)) mg/dl POC Glucose 89 (70-99) mg/dl Calcium 8.9 (8.6-10.3) mg/dl Magnesium 1.7 (1.7-2.4) mg/dl Total Bilirubin 0.5 (0.2-1.0) mg/dl AST 11 L (13-39) U/L ALT 8 (7-52) U/L Alkaline Phosphatase 43 (34-104) U/L Total Protein 5.4 L (6.0-8.3) gm/dl Albumin 3.1 L (3.4-5.0) gm/dl Globulin 2.3 L (2.5-4.0) gm/dl Albumin/Globulin Ratio 1.3 (0.9-2) Diagnostic Findings KUB X-Ray 09/30/22 07:00 KUB CLINICAL HISTORY: f/u SBO COMPARISON STUDY: CT of the abdomen and pelvis September 28, 2022. KUB September 29, 2022. FINDINGS: No dilated loops of small bowel are identified on this exam. Small bowel dilatation has likely improved. Postoperative findings within the spine and hips are incidentally noted. IMPRESSION: Findings suggestive of an improving small bowel obstruction. ACT 112: Negative or not required by law. Electronically signed by: Jose Segura M.D. 09/30/2022 1:08 PM PG Care Time/CCT Total # of Minutes Spent Total Time Spent with Patient: Total time spent is greater than 50% in coordination of care (as documented) at patient's floor/unit and/or counseling patient: Coding Diagnoses Small bowel obstruction K56.609 UTI (urinary tract infection) N39.0 CAD (coronary atherosclerotic disease) I25.10 H/O: HTN (hypertension) Z86.79 HLD (hyperlipidemia) E78.5 Nausea & vomiting R11.2 Abdominal pain R10.9
[2022-10-01] MEDS ORDERED: MAGNESIUM SULFATE / D5W 1 GM/100 ML BAG IV ONE (08:23)
[2022-10-01] MEDS: INSULIN ASPART PER UNIT CHARGE SC SCH ×2 (08:30→12:09)
[2022-10-01] MEDS: cefTRIAXone SODIUM 1,000 MG in DEXTROSE 5% AD-VAN 50 ML IV SCH (08:33)
[2022-10-01] MEDS: ENOXAPARIN INJ 40 MG/0.4 ML SYR SQ SCH (08:38)
[2022-10-01] MEDS: FAMOTIDINE 20 MG in SYRINGE 3 ML IV SCH (08:41)
[2022-10-01] MEDS ORDERED: DULoxetine HCL 60 MG CAP PO SCH (09:00)
[2022-10-01] MEDS ORDERED: ATENOLOL 50 MG TABLET PO SCH (09:00)
[2022-10-01] MEDS ORDERED: METHYLPHENIDATE HCL 10 MG TABLET PO SCH (09:00)
--- NOTE | 2022-10-01 10:27 | Surgery Progress Note ---
Date of Service October 01, 2022 Assessment & Plan (1) Small bowel obstruction: Plan: Patient reports she is feeling much better than yesterday and has been improving daily Denies nausea, vomiting, had a bowel movement yesterday and today ("nuggets") Passing small amount of flatus Has no abdominal complaints, is soft non-distended KUB pending this AM, yesterdays showed improving SBO WBC wnl Ambulating in halls without difficulty VSS Patient may advance diet from a surgical stand point will refer to Medicine for their input. Admission and Anticipated Discharge Date Admission Date: September 28, 2022 Supervising Physician Co-Signing Physician Notes Patient seen and examined, agree with above. Admitted with small bowel obstruction versus possible pseudoobstruction secondary to Ozempic. Passing gas and having bowel movements, no abdominal pain, tolerating low fiber diet. On exam she is afebrile with stable vitals, abdomen soft, nontender, nondistended. Okay to discharge to home this afternoon from surgery standpoint if tolerating her low fiber diet. She is anxious to be discharged. Subjective Patient reports she is feeling great Offers no complaints Had a small BM this AM describes as "nuggets" Babita nausea/vomiting Review of Systems Constitutional: no fever, no chills and no sweats Respiratory: no dyspnea Cardiovascular: no chest pain Gastrointestinal: no abdominal pain, no bloating, no nausea and no vomiting Genitourinary: no problem reported Physical Exam Physical Exam: alert, awake Constitutional: well developed, cooperative and comfortable; no acute distress Respiratory: normal respiratory effort and able to speak in complete sentences; no respiratory distress Cardiovascular: Rate/Rhythm: regular rate Gastrointestinal (Abdomen): Inspection/Auscultation: + abdominal surgical scar (patient reports history of hysterectomy); abdomen not distended Percussion/Palpation: abdomen soft; abdomen nontender Results & Data Vital Signs (Past 12 Hours) Vital Signs Temp Pulse Resp BP Pulse Ox O2 Del Method 10/01/22 07:28 98.2 F 59 L 17 123/66 99 Room Air PG Care Time/CCT Total # of Minutes Spent Total Time Spent with Patient: Total time spent is greater than 50% in coordination of care (as documented) at patient's floor/unit and/or counseling patient: Coding Level of Care Code 95394 SUB INP/OBS CARE 03/27MIN Diagnoses Small bowel obstruction K56.609
--- NOTE | 2022-10-01 10:39 | XRay Report ---
KUB CLINICAL HISTORY: f/u SBO COMPARISON STUDY: CT of the abdomen pelvis September 28, 2022. KUB September 30, 2022. FINDINGS: Bilateral hip arthroplasties and postoperative findings within the lumbosacral spine are in cidentally noted. The amount of stool is within normal limits. No dilated loops of small or large bow el are identified. IMPRESSION: No dilated loops of bowel identified. The findings suggest resolution of the small bowel obstruction. ACT 112: Negative or not required by law. Electronically signed by: Jose Segura M.D. 10/01/2022 10:38 AM
--- NOTE | 2022-10-01 13:26 | Discharge Summary ---
Date of Service October 01, 2022 Admission HPI Per Admitting Provider 77yo female resident from [place] visiting friends in [place] with PMHx significant for CAD (s/p stent x 2 2013), HTN, HLD, DM with prior surgical history including hysterectomy and partial colon resection with appendectomy secondary to bowel ischemia, hiatal hernia repair presented with abdominal pain starting yesterday evening after evening meal with urge to have B< but was unable. Associated n/v. Hx partial colon resection 2nd to bowel ischemia in 2018, reports feeling similar. 1 episode of emesis shortly after arrival to ER but not since that time. No SBO since her resection in 2018 and subsequent hiatal hernia repair in 2019. No longer on PPI therapy as she reports symptoms had improved since surgery. Currently pain controlled but reports feeling drugged and quiet sleepy. NO chest pain or shortness of breath. No further emesis since given something stronger in the ER but reports she had vomited on in the EMS as well. Abdominal pain to her LEFT lower side with radiation around to her back. Denies urinary symptoms at present but does report she feels like she has to get up to pee. Reports she completed a course of antibiotics for a recent UTI which she is "plagued with". Spinal surgery last year. Could be from this. Hx DM, medications reviewed. She states she has been on these medications for a while, including the Ozempic and reports that she doesn't want to loose any more weight and wants off of this. Discussed last A1c, she believes hers was 6.5. Discussed conservative treatment, holding off NGT for now. Does have prior hx blood clot to jugular from shahid catheter. Will be placed on Lovenox SQ for DVT prophylaxis while inpatient. Full code in event of need for CPR/intubation if meaning short term. Admission Exam Per Admitting Provider General: WD female resting in bed in ER, just medicated for pain, sleepy but NAD HEENT: head normocephalic, atraumatic, slightly dry mm, trachea midline CV: RRR, no significant m/r/g, no significant edema/calf tenderness, pulses palpable Resp: CTA, diminished in bases, no w/c/r, on room air GI: hypoactive BS throughout, soft, generalized tenderness worse in RLQ without guarding/rigidity : no tsai MSK/Neuro: no focal deficits, follows commands, no slurred speech/facial droop Psych: Alert to person/place/time, cooperative with exam Skin: perfused, no obvious rashes appreciated Principal Diagnosis Small Bowel Obstruction, Cystitis/UTI Discharge Exam General: WD/WN female resting in bed, NAD, hopeful for discharge HEENT: head normocephalic, atraumatic, mmm, trachea midline Resp: CTA, no w/c/r, on room air CV: RRR, no significant m/r/g, no pitting edema/calf tenderness GI: +BS throughout, soft/NT (exception deep palpation LLQ), no guarding/rigidity : no tsai MSK/Neuro: no focal deficits, following commands, no slurred speech/facial droop Psych: AOX3, cooperative with exam Discharge Data Allergies Allergy/AdvReac Type Severity Reaction Status Date / Time Sulfa (Sulfonamide Allergy Hives Verified 09/28/22 07:48 Antibiotics) Consultations 09/28/22 07:24 Consult General Surgery Stat 09/28/22 07:45 ED Decision to Admit Stat Ordered Studies Abdomen/Pelvis CT 09/28/22 04:58 CT SCAN OF THE ABDOMEN AND PELVIS WITH IV CONTRAST CLINICAL HISTORY: Generalized abdominal pain. COMPARISON STUDY: No priors. TECHNIQUE: Following the IV administration of 93 cc of Optiray 320, CT scan of the abdomen and pelvis is performed from the lung bases to the proximal femora. Images are reviewed in the axial, sagittal, and coronal planes. IV contrast was administered without complication. A dose lowering technique was utilized adhering to the principles of ALARA. The Examination is significantly degraded by streak artifact from extensive metallic spinal hardware and bilateral hip arthroplasties. CT DOSE: 1167.34 mGy.cm FINDINGS: Lung bases: The heart is normal in size and without pericardial effusion. The coronary arteries are densely calcified. The lung bases are clear noting mild bibasilar scarring/atelectasis. Liver: The contrast-enhanced liver is normal in size, contour, and attenuation. There is no intrahepatic biliary ductal dilatation. The hepatic veins and portal veins are patent. Gallbladder: Unremarkable. Spleen: Normal in size and attenuation. Pancreas: A 17 mm ovoid cystic lesion in the pancreatic neck seen on image #91 is typical for sidebranch IPMN. The pancreas is otherwise normal as imaged. Adrenal glands: Unremarkable. Kidneys: The contrast enhanced kidneys demonstrate mild cortical atrophy and are without hydronephrosis. The kidneys enhance symmetrically. Abdominal vasculature: The abdominal aorta is normal in course and caliber note a moderate to advanced atherosclerotic calcification. Stomach and bowel: There is a [id number] hiatal hernia. There is evidence of previous fundoplication. There is advanced colonic diverticulosis without CT evidence of acute diverticulitis. Postsurgical change is seen involving the right colon with ileocolic anastomosis. The mid small bowel loops are distended and fluid-filled measuring up to 2.5 cm in diameter. A complex transition point is seen in the right lower quadrant on image #187. There is infiltration and interloop fluid around the small bowel loops in the right lower quadrant. The small bowel distal to this is completely decompressed and the appearance is consistent with a small bowel obstruction. There is no pneumatosis intestinalis or portal venous gas. The appendix is surgically absent. Peritoneum: No intraperitoneal free air is identified. There is trace interloop fluid as well as trace free fluid in the right paracolic gutter. Lymphadenopathy: None. Pelvic viscera: Evaluation of the pelvis is degraded by streak artifact from bilateral hip arthroplasties. The bladder is normal as visualized. The uterus is surgically absent. No adnexal lesion is seen. There are small bilateral fat- containing groin hernias. Skeletal structures: The skeletal structures are osteopenic. There is lumbosacral spondylosis with postsurgical change from laminectomy and posterior fusion seen extending from L1-S1. Interpedicular screws are present at all levels. Lucency around the interpedicular screws at S1 suggests loosening. No lytic or blastic lesions are seen. Bilateral hip arthroplasties are in place. Soft tissues: A fluid collection seen in the posterior midline subcutaneous soft tissues overlying the laminectomy site measures approximately 9 x 3.5 x 3 cm. IMPRESSION: 1. There is postsurgical change from right colonic resection with ileocolic anastomosis. 2. There is a small bowel obstruction with a complex transition point in the right lower quadrant. Interloop fluid and infiltration is seen around the small bowel loops in the right lower quadrant at the transition point. This is likely on the basis of adhesions. Given the somewhat complex appearance a closed loop type obstruction is not entirely excluded. Surgical assessment is advised. 3. No focally thick-walled bowel loops are identified. There is no pneumatosis intestinalis or portal venous gas, and no intraperitoneal free air is seen. 4. A 17 mm ovoid cystic lesion in the pancreatic neck is typical for a sidebranch IPMN. Nonemergent GI follow-up is recommended. 5. Extensive postlaminectomy change is seen throughout the lumbar spine as above. A large subcutaneous fluid collection in the posterior midline at the laminectomy levels likely represents a seroma. The sterility of this fluid cannot be assessed imaging. 6. Lucency around the interpedicular screws at S1 suggests loosening. 7. Advanced colonic diverticulosis without CT evidence of acute diverticulitis. 8. Advanced coronary artery atherosclerosis. 9. Additional findings as above. ACT 112: Negative or not required by law. Electronically signed by: Ramesh Corrales M.D. 09/28/2022 7:11 AM Chest X-Ray 09/28/22 04:59 SINGLE VIEW CHEST CLINICAL HISTORY: Nausea and vomiting. Generalized abdominal pain. FINDINGS: An AP, portable, upright chest radiograph is obtained. No prior studies are available for comparison at the time of dictation. The cardiomediastinal silhouette is top normal for projection noting atherosclerotic calcification of the thoracic aorta. The lungs and pleural spaces are clear. No pneumothorax is seen. The skeletal structures are osteopenic. The bony thorax is grossly intact. Bilateral shoulder arthroplasties are in place. Fusion hardware is seen in the lumbar spine. IMPRESSION: No active disease in the chest. ACT 112: Negative or not required by law. Electronically signed by: Ramesh Corrales M.D. 09/28/2022 7:50 AM KUB X-Ray 09/29/22 07:00 KUB HISTORY: Small bowel obstruction. Follow-up. COMPARISON: Abdomen and pelvis CT 09/28/2022. FINDINGS: Suture material again noted within the right side the abdomen. There is gas and stool within the nondistended colon. There are few prominent gas- filled loops of small bowel seen within the abdomen measuring up to 2.4 cm in diameter. This is improved compared to the prior study and favors a resolving partial small bowel obstruction. Extensive lumbar spinal fusion hardware again noted. There are bilateral total hip arthroplasties. No renal calculi. No ureteral calculi. No pneumoperitoneum or pneumatosis. IMPRESSION: Interval improvement in the dilated gas-filled loops of small bowel within the abdomen. This favors a resolving partial small bowel obstruction. Continued follow-up recommended. ACT 112: Negative or not required by law. Electronically signed by: Jevon Hamm M.D. 09/29/2022 9:47 AM KUB X-Ray 09/29/22 16:48 KUB HISTORY: worse abdominal pain, admit w/ SBO COMPARISON: KUB 09/29/2022. FINDINGS: Lumbar spinal fusion hardware and bilateral total hip arthroplasties are again noted. The visualized lung bases are clear. There are suture material within the right side the abdomen. A few nondilated gas-filled loops of small bowel are again seen within the left side the abdomen. This favors a resolving partial bowel small bowel obstruction. Nondilated gas and stool-filled colon is again noted. No renal calculi. No ureteral calculi. No pneumoperitoneum or pneumatosis. IMPRESSION: No dilated loops of bowel identified. A few nondilated gas-filled loops of small bowel within the left side of the abdomen persist and favor a resolving partial small bowel obstruction. ACT 112: Negative or not required by law. Electronically signed by: Jevon Hamm M.D. 09/29/2022 6:56 PM KUB X-Ray 09/30/22 07:00 KUB CLINICAL HISTORY: f/u SBO COMPARISON STUDY: CT of the abdomen and pelvis September 28, 2022. KUB September 29, 2022. FINDINGS: No dilated loops of small bowel are identified on this exam. Small bowel dilatation has likely improved. Postoperative findings within the spine and hips are incidentally noted. IMPRESSION: Findings suggestive of an improving small bowel obstruction. ACT 112: Negative or not required by law. Electronically signed by: Jose Segura M.D. 09/30/2022 1:08 PM KUB X-Ray 10/01/22 08:20 KUB CLINICAL HISTORY: f/u SBO COMPARISON STUDY: CT of the abdomen pelvis September 28, 2022. KUB September 30, 2022. FINDINGS: Bilateral hip arthroplasties and postoperative findings within the lumbosacral spine are incidentally noted. The amount of stool is within normal limits. No dilated loops of small or large bowel are identified. IMPRESSION: No dilated loops of bowel identified. The findings suggest resolution of the small bowel obstruction. ACT 112: Negative or not required by law. Electronically signed by: Jose Segura M.D. 10/01/2022 10:38 AM Hospital Course (1) Small bowel obstruction: admitted w/ n/v/abdominal pain since last evening, inability to move her bowels Lactic acid elevated, normalized on repeat. No fevers but did report possible chills. WBC wnl. Hgb elevated 16.4. K 3.4, Ca 10.6. BUN/Cr 20/1.0. LFTs wnl. Trop 2.7 (no CP/SOB reported). CTAP w/ small bowel obstruction with a complex transition point in the right lower quadrant. Interloop fluid and infiltration is seen around the small bowel loops in the right lower quadrant at the transition point. This is likely on the basis of adhesions. Given the somewhat complex appearance a closed loop type obstruction is not entirely excluded. Surgical assessment is advised. Surgery consulted No need for NGT during stay given no further n/v Conservative treatment provided with IVF and antiemetics/pain control/ambulation Diet advanced to low fiber prior to discharge without reported issues, cleared by surgery for discharge. To continue low fiber diet x 2 weeks (information provided), and advance as tolerated. Discussed holding her Ozempic to prevent constipation issues/recurrence of SBO Encouraged to push fluids/stay hydrated, monitor for any worsening symptoms/when to return to ER Lovenox SQ was utilized for DVT prophylaxis during inpatient stay UTI/Cystitis Also was treated for cystitis w/ reported increased frequency on admission despite outpatient abx therapy with Ciprofloxacin and reported ongoing frequency on trip to [place]. Given IV Rocephin while inpatient and received 3 days which should cover for simple cystitis. No abn findings on CTAP on admission. Urine cx finalized with ecolix2, resistant to FLQ, likely cause of her ongoing discomfort on exam. Afebrile/no leukocytosis (aside from borderline on admission, suspected from n/v [employer]) Blood cultures remained NGTD after 48 hours prior to discharge (2) UTI (urinary tract infection): as above (3) CAD (coronary atherosclerotic disease): hx cath s/p stent x 2 in 2013. No SOB/CP reported, held ASA while NPO, resumed when tolerating PO intake. Continue ASA/atenolol at discharge Hx DM - meds held on admit, given D5 w/ IVF given hypoglycemia. A1c 6.6. Discussed as she did not want any more weight loss and on this drug for a while that she wanted to come off. Discussed holding until seen back in [place] given good ccontrol of DM and instructed not to continue this at discharge. Can continue other DM medications (4) H/O: HTN (hypertension): BP stable. To continue home medications (5) HLD (hyperlipidemia): resumed as taking PO - continued usual meds at discharge (6) Nausea & vomiting: antiemetics as above as needed, no further emesis and tolerating diet. Rest of treatment as above Of note, need GI f/u for possible IMPN branch on CTAP on admission. Lipase wnl on admit Can have follow up with PCP at home (7) Abdominal pain: IMPROVING, denied any pain prior to discharge. Did have some LLQ discomfort, no diverticulitis on imaging on exam but does have hx diverticulosis. F/u PCP/GI at home once resovled from above for consideration for repeat scope as outpatient Plan discharged home on low fiber diet outpatient follow up Total Time Total Time Spent Total Time Spent (In Minutes): 50 Discharge Plan Discharge Items Patient Disposition: Home - Self-Care Reason For Visit: SBO Discharge Diagnosis: You have been hospitalized for an acute medical problem. During your stay at [facility], we have made an effort to correct the problem that brought you to the hospital while keeping you as comfortable as possible. Medications were used to bring your condition under control and your discharge instructions will include directions for any medications you should take after leaving the hospital. Please make sure you see your Primary Care Provider as part of your follow up plan. Activity: Resume your previous activity Non-emergency contact: Primary Care Provider Call non-emergency contact if: you have any medication questions, your symptoms worsen and your pain is concerning for you Follow-up/Referrals: Alice Araujo [Other] Diet: Carb Consistent or DM2 and Low Fiber Addtl Attending Provider Instructions: You have been hospitalized for small bowel obstruction. Surgery was consulted, and you have been managed conservatively. Your diet has been advanced and you have been moving your bowels. As discussed, you should continue a low fiber diet for 2 weeks and then can increase as tolerated. Below are guidelines regarding low fiber. You should follow up with primary care and GI locally once returned home. You were also having symptoms suspicious for a urinary tract infection that may have not been treated with your previous antibiotic. Urine culture shows ecoli which was RESISTANT to CIPROFLOXACIN as you had suspected but sensitive to the IV antibiotics and you received three days of IV antibiotics and should be enough to cover for simple cystitis. You should hold any further Ozempic as discussed to prevent dehydration/constipation and follow up with primary care. Your A1c was excellent. Please continue to stay well hydrated. Monitor for any signs of worsening abdominal pain, fever, inability to tolerate oral intake, nausea or vomiting or for any other symptoms concerning for you. Please follow up with primary care at home. It has been a pleasure being a part of the medical team providing for you while you have been in the hospital. Take care! Addtl [employer]st Consultant Provider Instructions: A low fiber diet is typically recommended for individuals with certain medical conditions or as a temporary measure to relieve digestive symptoms. Here is some basic information about a low fiber diet: 1. Purpose: A low fiber diet limits the intake of foods high in dietary fiber to reduce the workload on the digestive system and ease symptoms like diarrhea, abdominal pain, or cramping. 2. Foods to limit or avoid: - Whole grains (e.g., whole wheat, whole oats, brown rice) - Legumes (e.g., lentils, beans, chickpeas) - Nuts and seeds - Raw fruits and vegetables (except for some cooked or peeled options) - High-fiber cereals or breads 3. Foods generally allowed: - Refined grains (e.g., white bread, white rice, refined cereals) - Cooked and peeled fruits and vegetables (e.g., applesauce, canned fruits, cooked carrots) - Lean meats, poultry, and fish - Dairy products (unless lactose intolerant) - Eggs 4. Cooking and preparation methods: - Choose peeled or cooked fruits and vegetables instead of raw ones. - Remove seeds and skin from fruits and v egetables. - Opt for refined grain products instead of whole grains. - Cook or soak legumes to reduce their fiber content. It's important to note that a low fiber diet should only be followed under the guidance of a healthcare professional, as it is not suitable for long-term use. They can provide personalized recommendations based on your specific needs and condition. Pending Studies at Discharge: Yes (blood cultures -- no growth to date after 48 hours) Stand-Alone Forms: My [facility] Medications and DC Order Prescriptions: Continued methylphenidate HCl 20 mg Tablet 40 mg PO QAM docusate sodium 50 mg Capsule 50 mg PO DAILY aspirin 81 mg Tablet,Delayed Release (Dr/Ec) 81 mg PO HS atenolol 50 mg tablet 50 mg PO QAM coenzyme Q10 [Co Q-10] 100 mg Capsule 100 mg PO HS rosuvastatin 20 mg tablet 20 mg PO HS duloxetine [Cymbalta] 60 mg Capsule,Delayed Release(Dr/Ec) 60 mg PO QAM Align 4 mg Capsule 4 mg PO HS Jardiance 25 mg tablet 25 mg PO QAM Toujeo Max U-300 SoloStar 300 unit/mL (3 mL) insulin pen 39 unit SUBCUT HS calcium 26-vit D3-magnesium 15 1 tab PO DAILY Held Ozempic 2 mg/dose (8 mg/3 mL) pen injector 2 mg SUBCUT DIRECTED Hold Instructions: Resume on 11/01/22. until seen by primary care Rx Instructions: on mondays Discharge Orders: Discharge Order (Routine); Ordered 10/01/22 Ordered By: Clair Luna/Other Patient Handouts: Managing Type 2 Diabetes Admission Data Admit Date/Time: 09/28/22 08:54 Attending Provider: Golden Mcfadden Admit Provider: Liam Calderon Primary Care Provider: Alice Araujo Other Providers: Mannie Mcdaniel ; Liam Calderon Coding Level of Care Code 57755 INP/OBS DISCH >30 MIN Diagnoses Small bowel obstruction K56.609 UTI (urinary tract infection) N39.0 CAD (coronary atherosclerotic disease) I25.10 H/O: HTN (hypertension) Z86.79 HLD (hyperlipidemia) E78.5 Nausea & vomiting R11.2 Abdominal pain R10.9
== END 2022-10-01 14:42 | disposition home or self-care (01) | DRG 389 ==
LOC: ED 04:40 → SUATTDRO 08:54 → 3N 08:54